=== PATIENT | male | born 1970 | race Caucasian/White ===

== ENCOUNTER 2019-01-08 14:30 | Emergency (ER) | payer MEDICAID, SELFPAY ==
[2019-01-08 14:33] VITALS: BP 127/75; PULSE 135; RESP 18; TEMP 37.3; O2SAT 97
--- NOTE | 2019-01-08 14:55 | W.ED.GENAD ---
Discharge Plan Disposition Patient Disposition: HOME Condition: Stable Discharge Details Chief Complaint: Cellulitis Clinical Impression: Pilonidal abscess Reason For Visit: cyst burst low back Primary Care Provider: Marco Antonio Barragan ED Provider: Phill Lee Home Meds and New Rx's Prescriptions: New sulfamethoxazole-trimethoprim [Bactrim DS] 800-160 mg tablet 1 tab PO BID Qty: 14 RF: 0 amoxicillin-pot clavulanate [Augmentin] 875-125 mg tablet 1 tab PO BID Qty: 14 RF: 0 No Action lisinopril 5 mg Tablet RF: 0 Discharge Instructions Additional Instructions: You have an abscess that drained prior to coming here take the antibiotics as prescribed. You can also take 1000mg tylenol and 600mg ibuprofen every 6 hours for pain as needed you should be contacted with an appointment for general surgery If you feel you are becoming more ill, have persistent high fevers or severe abdomimal pain return to the emergency department Medical Decision Making Pt states he has a hx of recurrent cysts that drain at the tailbone area, had it drain this morning while doing sit ups. Had subjective fevers earlier but states none since. He has an open area that apperas to be a drained pilonidal cyst with 1cm surrounding erythema. No abdomintal tenderness so doubt deeper abscess and no neurological findings to suggest sea, no ivdu. He appears systemically well so do not feel labs or imaging for sepsis or other causes of his symptoms indicated at this time. Will place on oral abx and refer to general surgery, return precautions given Differential Diagnosis pilonidal cyst vs abscess HPI General Mode of arrival: ambulatory. Date/Time Provider Initiated Documentation: 01/08/19 14:41. Limitations to Documentation: no limitations. Information obtained by: patient. History of Present Illness 48 year old M presents to the emergency department with the chief complaint of abscess at tail bone, described as moderate, and is localized to the back. Patient reports no radiation. Patient started experiencing this day(s) (1) and it has been constant. No relieving factors improve symptom(s), No exacerbating factors reported . Patient did receive the following treatments prior to arrival, none Related Data Home Medications Medication Instructions Recorded Confirmed amoxicillin-pot clavulanate 1 tab PO BID #14 tab 01/08/19 [Augmentin] lisinopril 01/08/19 sulfamethoxazole-trimethoprim 1 tab PO BID #14 tab 01/08/19 [Bactrim DS] Previous Rx's Medication Instructions Recorded amoxicillin-pot clavulanate 1 tab PO BID #14 tab 01/08/19 [Augmentin] sulfamethoxazole-trimethoprim 1 tab PO BID #14 tab 01/08/19 [Bactrim DS] Allergies Allergy/AdvReac Type Severity Reaction Status Date / Time No Known Allergies Allergy Unverified 01/08/19 14:38 General Stated Complaint: Cellulitis OTIS: 4 Review of Systems Review of Systems All systems reviewed & are unremarkable except as noted in HPI and below ENT Denies change in voice Cardiovascular Denies chest pain Gastrointestinal Denies abdominal pain Psychiatric Denies depression Endocrine Denies cold intolerance and Denies heat intolerance PFSH Social History Smoking and Tabacco status: Current every day Exam Const General: no acute distress Orientation: alert HENMT Head: normal to inspection Ears: external ears normal General nose exam: external nose normal Mouth: moist mucous membranes Eyes General: appearance normal, both eyes and all related structures Neck Neck: normal visual inspection Resp Effort & Inspection: normal respiratory effort and able to speak in complete sentences Cardio Rate: regular rate (Hr 98 on exam) Neuro General: alert and oriented x3 Extrem General: normal to inspection Psych Mental Status: mental status grossly normal Course Vital Signs Temperature 37.3 C 01/08/19 14:33 Pulse 135 H 01/08/19 14:33 Respiratory Rate 18 01/08/19 14:33 Blood Pressure 127/75 01/08/19 14:33 Pulse Oximetry 97 01/08/19 14:33 Temperature 37.3 C 01/08/19 14:33 Temperature Source Temporal Artery Scan 01/08/19 14:33 Pulse 135 H 01/08/19 14:33 Respiratory Rate 18 01/08/19 14:33 Respiratory Effort 01/08/19 14:39 Blood Pressure 127/75 01/08/19 14:33 Pulse Oximetry 97 01/08/19 14:33 Oxygen Delivery Method Room Air 01/08/19 14:33 Oxygen Flow Rate 0 01/08/19 14:33 Pain Level 6 01/08/19 14:33
--- NOTE | 2019-01-08 14:59 | ED.GENADUL_ITS ---
Discharge Plan Disposition Patient Disposition: HOME Condition: Stable Discharge Details Chief Complaint: Cellulitis Clinical Impression: Pilonidal abscess Reason For Visit: cyst burst low back Primary Care Provider: Marco Antonio Barragan ED Provider: Phill Lee Home Meds and New Rx's Prescriptions: New sulfamethoxazole-trimethoprim [Bactrim DS] 800-160 mg tablet 1 tab PO BID Qty: 14 RF: 0 amoxicillin-pot clavulanate [Augmentin] 875-125 mg tablet 1 tab PO BID Qty: 14 RF: 0 No Action lisinopril 5 mg Tablet RF: 0 Discharge Instructions Additional Instructions: You have an abscess that drained prior to coming here take the antibiotics as prescribed. You can also take 1000mg tylenol and 600mg ibuprofen every 6 hours for pain as needed you should be contacted with an appointment for general surgery If you feel you are becoming more ill, have persistent high fevers or severe abdomimal pain return to the emergency department Medical Decision Making Pt states he has a hx of recurrent cysts that drain at the tailbone area, had it drain this morning while doing sit ups. Had subjective fevers earlier but states none since. He has an open area that apperas to be a drained pilonidal cyst with 1cm surrounding erythema. No abdomintal tenderness so doubt deeper abscess and no neurological findings to suggest sea, no ivdu. He appears systemically well so do not feel labs or imaging for sepsis or other causes of his symptoms indicated at this time. Will place on oral abx and refer to general surgery, return precautions given Differential Diagnosis pilonidal cyst vs abscess HPI General Mode of arrival: ambulatory . Date/Time Provider Initiated Documentation: 01/08/19 14:41 . Limitations to Documentation: no limitations . Information obtained by: patient . History of Present Illness 48 year old M presents to the emergency department with the chief complaint of abscess at tail bone, described as moderate, and is localized to the back. Patient reports no radiation. Patient started experiencing this day(s) (1) and it has been constant. No relieving factors improve symptom(s), No exacerbating factors reported . Patient did receive the following treatments prior to arr ival, none Related Data Home Medications Medication Instructions Recorded Confirmed amoxicillin-pot clavulanate 1 tab PO BID #14 tab 01/08/19 [Augmentin] lisinopril 01/08/19 sulfamethoxazole-trimethoprim 1 tab PO BID #14 tab 01/08/19 [Bactrim DS] Previous Rx's Medication Instructions Recorded amoxicillin-pot clavulanate 1 tab PO BID #14 tab 01/08/19 [Augmentin] sulfamethoxazole-trimethoprim 1 tab PO BID #14 tab 01/08/19 [Bactrim DS] Allergies Allergy/AdvReac Type Severity Reaction Status Date / Time No Known Allergies Allergy Unverified 01/08/19 14:38 General Stated Complaint: Cellulitis OTIS: 4 Review of Systems Review of Systems All systems reviewed & are unremarkable except as noted in HPI and below ENT Denies change in voice Cardiovascular Denies chest pain Gastrointestinal Denies abdominal pain Psychiatric Denies depression Endocrine Denies cold intolerance and Denies heat intolerance PFS Social History Smoking and Tabacco status: Current every day Exam Const General: no acute distress Orientation: alert HENMT Head: normal to inspection Ears: external ears normal General nose exam: external nose normal Mouth: moist mucous membranes Eyes General: appearance normal, both eyes and all related structures Neck Neck: normal visual inspection Resp Effort & Inspection: normal respiratory effort and able to speak in complete sentences Cardio Rate: regular rate (Hr 98 on exam) Neuro General: alert and oriented x3 Extrem General: normal to inspection Psych Mental Status: mental status grossly normal Course Vital Signs Temperature 37.3 C 01/08/19 14:33 Pulse 135 H 01/08/19 14:33 Respiratory Rate 18 01/08/19 14:33 Blood Pressure 127/75 01/08/19 14:33 Pulse Oximetry 97 01/08/19 14:33 Temperature 37.3 C 01/08/19 14:33 Temperature Source Temporal Artery Scan 01/08/19 14:33 Pulse 135 H 01/08/19 14:33 Respiratory Rate 18 01/08/19 14:33 Respiratory Effort 01/08/19 14:39 Blood Pressure 127/75 01/08/19 14:33 Pulse Oximetry 97 01/08/19 14:33 Oxygen Delivery Method Room Air 01/08/19 14:33 Oxygen Flow Rate 0 01/08/19 14:33 Pain Level 6 01/08/19 14:33
--- NOTE | 2019-01-09 07:34 | CMPROGNOTE_ITS ---
Care Management Progress Note 01/09-Dr. Lee requested assistance with a general surgery referal within one week for a sebaceous cyst abscess. Referral faxed to [facility] this am.
== END 2019-01-08 16:01 | disposition home or self-care (01) ==
PROVIDERS: Emergency Provider Emergency Medicine; PCP General Practice
DX: L05.01 Pilonidal cyst with abscess (principal)
CPT/HCPCS: 99283

== ENCOUNTER 2019-01-15 11:35 | Outpatient (CLI) | payer MEDICAID, SELFPAY ==
[2019-01-15 12:24] LABS: HCT 46.3 % (40.0-50.0); HGB 15.4 g/dL (13.5-17.5); Mean Corp. HGB Concentration 33.3 g/dL (32.0-36.0); Mean Corpuscular Volume 90.1 fL (80-95); Mean Platelet Volume 9.8 fL (8.0-11.0); Platelet Count 277 x1000/uL (130-400); RBC 5.14 m/cumm (4.50-6.00); RBC Distribution Width 14.1 % (11.8-14.1); White Blood Cell Count 6.11 k/cumm (4.4-10.8)
[2019-01-15 12:56] LABS: Anion Gap 10.5 mmol/L (3-11); BUN 14 mg/dL (7-18); CO2 27.5 mmol/L (21.0-32.0); CREATININE 1.08 mg/dL (0.70-1.30); Calcium 9.5 mg/dL (8.5-10.1); Chloride 102 mmol/L (98-107); Glucose 94 mg/dL (70-100); Potassium 4.4 mmol/L (3.5-5.1); Sodium 140 mmol/L (136-145)
[2019-01-15 14:34] LABS: Hemoglobin A1C 5.6 % (4.5-6.2)
== END 2019-01-15 11:55 ==
PROVIDERS: Visit Provider Surgery
DX: L05.01 Pilonidal cyst with abscess (principal); L72.9 Follicular cyst of the skin and subcutaneous tissue, unspecified
CPT/HCPCS: 36415; 80048; 85027; 83036

== ENCOUNTER 2019-02-06 06:11 | Day surgery (SDC) | payer MEDICAID, SELFPAY ==
[2019-02-06 06:24] VITALS: BP 129/88; PULSE 86; RESP 16; TEMP 36.6; O2SAT 98
[2019-02-06] MEDS: Lactated Ringers 1,000 ML 80 ML IV (06:45)
[2019-02-06] MEDS: ceFAZolin 2 GM/50 ML BAG IVPB (07:33)
--- NOTE | 2019-02-06 08:00 | PILONIDAL_PTH ---
PATIENT: Junior Barkley LOC: [facility]AB U#:[id number] AGE/SX: 48/M ROOM: RE02/06/[address]: Carly Reese : 1970 BED: DIS: 02/06/2019 SPEC #: [id number] RECD: 02/06/19 09:40 STATUS: MAXIMILIAN RE #: [id number] SAVANNAH: 02/06/19 08:[address]: Carly Reese DEPT: Surgical Specimen RECD BY: Kristal Carmichael ENTERED: 02/06/19 09:40 SP TYPE: PILONIDAL OTHR DR: Milton Dickens Tissues: 1 - PILONIDAL CYST/SINUS Procedures: GROSS AND MICRO LEVEL 3 Comments: [id number]
[2019-02-06] MEDS: Bupivacaine 0.25% Pres-Free 30 ML VIAL (08:21)
--- NOTE | 2019-02-06 08:35 | W.PM.OP ---
Date of service: 02/06/19 Time of Service: 08:35 Operative Note DATE OF PROCEDURE: 02/06/19 PRE-OP DIAGNOSIS: pilonidial cyst POST-OP DIAGNOSIS: same PROCEDURE: excision SURGEON: Carly Reese OVERNIGHT CASHIER: Bonnie Holcomb ANESTHESIA: MAC and local ESTIMATED BLOOD LOSS: 10 PATHOLOGY: other TOURNIQUET TIME: 0 COMPLICATIONS: None Patient was transported to: PACU Patient's condition: stable Implants: 11/10 [place] drain Indications: chronic infections Findings: 5x2x1 Procedure Description: dictated
--- NOTE | 2019-02-06 08:38 | ROE_ITS ---
Date of service: 02/06/19 Time of Service: 08:35 Operative Note DATE OF PROCEDURE: 02/06/19 PRE-OP DIAGNOSIS: pilonidial cyst POST-OP DIAGNOSIS: same PROCEDURE: excision SURGEON: Carly Reese INSTANT POWDER SUPERVISOR: Bonnie Holcomb ANESTHESIA: MAC and local ESTIMATED BLOOD LOSS: 10 PATHOLOGY: other TOURNIQUET TIME: 0 COMPLICATIONS: None Patient was transported to: PACU Patient's condition: stable Implants: 11/10 [place] drain Indications: chronic infections Findings: 5x2x1 Procedure Description: dictated
--- NOTE | 2019-02-06 08:42 | W.PM.DSUDISC ---
DS: Diagnosis Discharge Diagnosis (1) Pilonidal cyst: Status: Acute
[2019-02-06 09:10] VITALS: BP 138/97; PULSE 81; RESP 16; TEMP 36; O2SAT 98
[2019-02-06 09:50] VITALS: BP 132/86; PULSE 89; RESP 18; TEMP 36.6; O2SAT 98
--- NOTE | 2019-02-06 12:02 | ROE_ITS ---
DATE OF PROCEDURE: February 06, 2019 PREOPERATIVE DIAGNOSIS: Pilonidal cyst. POSTOPERATIVE DIAGNOSIS: Same. SURGEON: Carly Reese D.O. GAS LINE SERVICER: GEORGE Cotton ANESTHESIA: Spinal, MAC and local. 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 DRAINS: 1/4 [place] drain was placed. INDICATION FOR PROCEDURE: Mr. Barkley is a 48-year-old male seen at the request of his PCP and is here today for excision of a pilonidal cyst. He's had many abscesses and chronic infections; has had multiple I and D's and is here today for formal excision. He is not marked in preo, but it was visualized. there is no redness or drainage today. he is not on abx at tis time. PROCEDURE: He is brought to the surgical suite. A spinal anesthetic is administered per the Department of Anesthesia. The patient is then placed in the prone position with all bony surfaces padded. He did receive preop antibiotics. A time-out is performed. He is shaved. He is prepped in a sterile fashion using a ChloraPrep scrub solution. 30 cc's of 0.25% Marcaine is used for local anesthetization. The pilonidal cyst is excised and it is approximately 5 x 2 x 1 inches. At the time, all the non-viable tissue is removed. All tracks are probed and excised. It is curetted down to the presacral fascia. It is then copiously irrigated. Electrocautery is used to provide hemostasis. The deep tissue is approximated with #2-0 Vicryl and the skin is approximated with #0 Prolene. A 1/4 [place] drain is left in place, exiting the most inferior portion of the incision. A sterile dressing is applied. The patient tolerated the procedure well without complication and was sent to the Recovery Room in stable condition. cc: Milton Dickens D.O.
--- NOTE | 2019-02-06 17:45 | ROE_ITS ---
DATE OF PROCEDURE: February 06, 2019 PREOPERATIVE DIAGNOSIS: Pilonidal cyst. POSTOPERATIVE DIAGNOSIS: Pilonidal cyst. PROCEDURE: Excision. SURGEON: Carly Reese D.O. DIABETOLOGIST: Bonnie Holcomb PA-C ANESTHESIA: Spinal and MAC. ESTIMATED BLOOD LOSS: 10 cc COMPLICATIONS: The patient tolerated the procedure well without complication. INDICATIONS: Mr. Barkley is a 48-year-old male who presents for definitive excision of a pilonida l cyst. He has had multiple abscesses and infections in the past. He currently does not have an inf ection. He is not currently on any antibiotics. PROCEDURE: The patient is brought to the operative suite and a spinal anesthetic is administered per the Department of Anesthesia. The patient is placed in the prone position with all bony surfaces pa dded. The area is prepped and draped in the usual sterile fashion using a ChloraPrep scrub solution. Thirty cc's of 0.25% Marcaine is used for a local anesthetization. He did receive preoperative ant ibiotics. A time-out was performed prior to beginning the procedure. A #12 blade is used to excise the cyst. It is about 4 inches x 2 inches x 1 inch. With additional curetting, the final is 5 x 3 x 1 inches in size. Electrocautery is used to provide hemostasis. He has multiple old tracts from pr evious incision and drainage procedures. These are all excised as well and all of the nonviable tiss ue is taken off down to the presacral fascia. The wound is copiously irrigated. There is no bleedin g noted. The deep tissue is approximated with #2-0 Vicryl. A quarter-inch [place] drain is placed a nd in the most anterior position. The skin is oversewn with interrupted #0 Prolene. The drain is sewn with #0 Prolene. Sterile dressings are applied. The patient tolerated the procedure well without complications. He was transferred to the Recovery Room in stable condition. cc: Milton Dickens D.O.
== END 2019-02-06 10:10 | disposition home or self-care (01) ==
PROVIDERS: PCP Neuromusculoskeletal Medicine & OMM; Visit Provider Surgery
PROC: (CPT 11771; principal; 2019-02-06 07:30)
DX: L05.91 Pilonidal cyst without abscess (principal); I10 Essential (primary) hypertension
CPT/HCPCS: 11771; 88304; J0690; J1100; J2250; J2405

== ENCOUNTER 2020-01-02 02:04 | Outpatient (CLI) | payer MEDICAID, SELFPAY ==
[2020-01-02 09:41] LABS: HCT 45.9 % (40.0-50.0); HGB 15.3 g/dL (13.5-17.5); Mean Corp. HGB Concentration 33.3 g/dL (32.0-36.0); Mean Corpuscular Hemoglobin 30.8 pg (27.0-33.0); Mean Corpuscular Volume 92.4 fL (80-95); Platelet Count 245 x1000/uL (130-400); RBC 4.97 m/cumm (4.50-6.00); White Blood Cell Count 5.34 k/cumm (4.4-10.8)
[2020-01-02 10:04] LABS: ALT 55 U/L (16-63); AST 28 U/L (15-37); Alkaline Phosphatase 60 U/L (46-116); Anion Gap 7.8 mmol/L (3-11); BUN 13 mg/dL (7-18); Bilirubin, Total 0.6 mg/dL (0.2-1.0); CO2 28.2 mmol/L (21.0-32.0); CREATININE 1.09 mg/dL (0.70-1.30); Calcium 9.2 mg/dL (8.5-10.1); Calculated LDL 169 mg/dL (<100); Chloride 102 mmol/L (98-107); Cholesterol 266 mg/dL (<200); Glucose 100 mg/dL (74-106); HDL Cholesterol 63 mg/dL (40-60); Potassium 4.6 mmol/L (3.5-5.1); Sodium 138 mmol/L (136-145); Total Protein 7.3 g/dL (6.4-8.2); Triglyceride 172 mg/dL (<150)
== END 2020-01-02 02:24 ==
PROVIDERS: PCP Family Medicine; Visit Provider Family Medicine
DX: I10 Essential (primary) hypertension (principal)
CPT/HCPCS: 36415; 80053; 80061; 85027

== ENCOUNTER 2020-04-09 08:07 | Outpatient (CLI) | payer MEDICAID, SELFPAY ==
[2020-04-10 10:20] LABS: COVID-19 RT-PCR UVMMC Result Negative (Negative)
== END 2020-04-09 08:27 ==
PROVIDERS: PCP Family Medicine; Visit Provider Family Medicine
DX: Z11.59 Encounter for screening for other viral diseases (principal)
CPT/HCPCS: U0003

== ENCOUNTER 2022-02-08 01:59 | Outpatient (CLI) | payer MEDICAID, SELFPAY ==
--- NOTE | 2022-02-08 12:26 | DI.RAD_ITS ---
Exam(s) XR CHEST 2V PA LATERAL EXAM: XR CHEST 2V PA LATERAL CLINICAL HISTORY: FH thor aortic aneurysm,z82.49. TECHNIQUE: 2D digital imaging was performed. COMPARISON: No exams were available for comparison FINDINGS: 2 views: Heart size is normal. The mediastinum is not widened. Left lung is clear. There is mild infiltrate in the right midlung. No pleural effusions. IMPRESSION: Mild right midlung infiltrate. No pleural effusions. Follow-up to resolution is recommended. DATA REPOSITORY: RADIATION DOSE DELIVERED:
== END 2022-02-08 02:19 ==
PROVIDERS: PCP Family Medicine; Visit Provider Family Medicine
DX: Z82.49 Family history of ischemic heart disease and other diseases of the circulatory system (principal); R91.8 Other nonspecific abnormal finding of lung field
CPT/HCPCS: 71046

== ENCOUNTER → 2022-03-26 04:31 | Outpatient (CLI) | payer MEDICAID, SELFPAY | PROVIDERS: PCP Family Medicine; Visit Provider Family Medicine ==

== ENCOUNTER 2023-01-19 07:43 | Day surgery (SDC) | payer MEDICAID, SELFPAY ==
[2023-01-19 07:43] VITALS: BP 132/97; PULSE 92; RESP 20; TEMP 36.3; O2SAT 98
[2023-01-19] MEDS: Lactated Ringers 1,000 ML 80 ML IV (08:19)
--- NOTE | 2023-01-19 08:25 | ANES.PREOP_ITS ---
General Info Date of Service Date Performed: 01/19/23 Height: 5 ft 8 in Weight: 86.3 kg Body Mass Index (BMI): 28.9 Surgical Procedure: Operation Date: 01/19/23 10:05 Proposed Procedure Side Surgeon p Braden Gallagher MD Meds Allergies and Home Medications Allergies Allergy/AdvReac Type Severity Reaction Status Date / Time No Known Allergies Allergy Verified 01/18/23 10:58 Home Medication Medication Instructions Recorded CBD PO/SL DAILY 12/24/19 ashwaganda 800 mg PO DAILY 12/24/19 omega 9-nam-yxn-fish oil 1,000 mg 1 cap PO DAILY 12/24/19 (120 mg-180 mg) capsule (Fish Oil) vitamin B complex (B 1 tab PO DAILY 12/24/19 Complex-Vitamin B12 tablet) fexofenadine 180 mg tablet 180 mg PO DAILY PRN 02/05/22 (Marianela Allergy) lisinopril 20 mg tablet 20 mg PO DAILY #90 tabs 02/05/22 bisacodyl 5 mg tablet,delayed 5 mg PO ONCE #4 tabs 12/23/22 release (Dulcolax (bisacodyl)) polyethylene glycol 3350 17 17 g PO ONCE #238 grams 12/23/22 gram/dose oral powder Current Visit Medications: Current Medications Generic Name Dose Route Start Last Admin Trade Name Berlinq PRN Reason Stop Dose Admin Ringer's Solution 1,000 mls @ 80 mls/hr 01/19/23 06:00 01/19/23 08:19 IV 02/17/23 23:59 80 mls/hr INFUSION EDUAR Administration IV Miscellaneous Supplies 1 each 01/19/23 06:00 Iv Access IV 02/17/23 23:59 DIRECTED EDUAR Sodium Chloride 0 ml 01/19/23 06:00 Normal Saline Flush 10 Ml Syr IV 02/17/23 23:59 PRN PRN Sodium Chloride 0 ml 01/19/23 06:00 Normal Saline 10 Ml Vial IJ 02/17/23 23:59 DIRECTED PRN Sterile Water 0 ml 01/19/23 06:00 Water,Injection,Sterile 10 Ml Vial IJ 02/17/23 23:59 DIRECTED PRN PFSH Active Problems Active Problems: Problem Status Onset Code Screening for colon cancer Z12.11 Family history of thoracic aortic aneurysm Z82.49 Elevated LDL cholesterol level E78.00 Family history of ASCVD (arteriosclerotic cardiovascular disease) Z82.49 HTN (hypertension) I10 Pilonidal cyst L05.91 Medical History Medical History History of sebaceous cyst patient seen in ED 01/08/[address] [facility], hx of recurrent cysts. Surgical History Surgical History History of appendectomy Tobacco Smoking/Tobacco Use Status: Former Tobacco Use Alcohol Alcohol Intake: current Alcohol intake frequency: 0-2 drinks per day Alcohol type: beer Substance Use Substance use: Occasionally Substance use type: marijuana Vital Signs and Lab Results Vital Signs Most Recent Vital Signs in EMR: Most Recent Vital Signs Temp Pulse Resp BP Pulse Ox 36.3 C L 92 H 20 132/97 H 98 01/19/23 07:43 01/19/23 07:43 01/19/23 07:43 01/19/23 07:43 01/19/23 07:43 Lab Results Blood Type / Crossmatch: No Data to Display Complete Blood Count: No Data to Display Complete Metabolic Panel: No Data to Display Liver Function Panel: No Data to Display Coagulation Panel: No Data to Display Cardiac Panel: No Data to Display Arterial Blood Gas: No Data to Display Venous Blood Gas: No Data to Display Pancreas Panel: No Data to Display Thyroid Panel: No Data to Display Infectious Disease: No Data to Display Blood Cultures: No Data to Display Toxicology Panel: No Data to Display Anesthesia Assessment and Plan Anesthesia History Personal History: No History of Anesthesia Complications Family History: No Family History of Anesthesia Complications Exercise Tolerance Exercise Tolerance: Metabolic Equivalents>4 Pertinent Negatives Pertinent Negatives: No Symptoms of GERD Cardiac & Pulmonary Exam Cardiac Exam: Normal S1/S2 Heart Sounds Pulmonary Exam: Clear Bilateral Breath Sounds Implantable Cardiac Device Does patient have a Pacemaker or an ICD?: No Airway Exam Known Difficult Airway: No Mallampati Class: 3 Mouth Opening: Normal (> 3cm) Thyromental Distance: Greater than 3 cm Neck Range of Motion: Full ROM Neck Circumference: Normal Teeth Condition: Normal Dentition ASA Classification ASA Score: ASA 2 Emergency Case?: No NPO Status NPO Status: NPO Clears >2 hours, Solids >8 hours Anesthesia Plan Resuscitation Status: Full Code Anesthesia Technique: General Anesthesia Airway Planned: Natural Airway Monitors Used: Standard Monitors
[2023-01-19 08:28] VITALS: BMI 28.9
--- NOTE | 2023-01-19 09:49 | BOWEL_PTH ---
PATIENT: Junior Barkley LOC: FAB U#:[id number] AGE/SX: 52/M ROOM: RE01/19/[address]: Abimael Gallagher : 1970 BED: DIS: 01/19/2023 SPEC #: [id number] RECD: 01/19/23 12:56 STATUS: MAXIMILIAN RE #: [id number] SAVANNAH: 01/19/23 09:[address]: Abimael Gallagher DEPT: Surgical Specimen RECD BY: Kristal Carmichael ENTERED: 01/19/23 12:58 SP TYPE: Bowel OTHR DR: Ursula Chamorro Tissues: 1 - BIOPSY BOWEL 2 - BIOPSY BOWEL Procedures: GROSS AND MICRO LEVEL 4 Comments: [id number]
[2023-01-19 10:00] VITALS: BP 114/78; PULSE 91; RESP 18; TEMP 36.3; O2SAT 97
--- NOTE | 2023-01-19 10:04 | COLE_ITS ---
Date of service: 01/19/23 Time of Service: 10:04 Colonoscopy Report Procedure Description: Procedures performed: 1. Colonoscopy with snare polypectomy x2 Preoperative diagnosis: Screening colonoscopy Postoperative diagnosis: Colorectal polyps Surgeon: Mario Gallagher Anesthesia: Rafael Indication for procedure: 52-year-old man with no symptoms and no family history due for his for screening. Findings: The ascending colon a 10?12 mm sessile and multi?lobe polyp was remov ed with hot snare technique(resected in 1 piece). In the distal rectum a 3-5 mm sessile adenomatous?appearing polyp was removed with hot snare technique. Surveillance/follow-up recommendations: The right?sided polyp was quite advanced in appearance and greater than 1 cm - I recommend repeating another colonoscopy in 3 years. Complications: None Blood loss: Minimal Specimens:?? YES Quality of Prep:?? Good Procedure in detail: Written consent was obtained from the patient who was in agreement with the risks, benefits and indications of the procedure.? We went to the endoscopy suite and laid the patient in left lateral decubitus position.? Anesthesia was administered which was tolerated well.? A timeout was performed and when we are all in agreement we began the procedure. Digital rectal exam and visual examination was performed and within normal limits.? A well?lubricated colonoscope was advanced without difficulty all the way to the cecum identified by the ileocecal valve, and triangular folds and appendiceal orifice.? It was then slowly withdrawn.?? Retroflexion was performed in the rectum.? The findings/interventions are noted above. The scope was then removed and the patient tolerated the procedure well and was then taken back to the PACU in hemodynamically stable condition.
--- NOTE | 2023-01-19 10:05 | W.ANESPOSTOP ---
Postoperative Evaluation Date, Time and Location Date Performed: 01/19/23 Time Performed: 10:05 Patient Location: Day Surgery Unit Vital Signs Most Recent Imported Vital Signs: Most Recent Vital Signs Temp Pulse Resp BP Pulse Ox 36.3 C L 91 H 18 114/78 97 01/19/23 10:00 01/19/23 10:00 01/19/23 10:00 01/19/23 10:00 01/19/23 10:00 Pain Score Most Recent Pain Score: Most Recent Pain Score Pain Level 3 01/19/23 10:00 Assessment Mental Status: Awake (Alert & Oriented to Patient Baseline) Airway and Respiratory Function: Patent airway with normal (patient baseline) respiratory exam Cardiovascular Function: Hemodynamically Stable Hydration Status: Adequately Hydrated Nausea & Vomiting: No Nausea or Vomiting Pain: Pt. Denies Any Pain Peripheral Nerve Block: Patient did not receive a nerve block
[2023-01-19 10:20] VITALS: BP 114/78; PULSE 74; RESP 18; TEMP 36.4; O2SAT 99
== END 2023-01-19 10:48 | disposition home or self-care (01) ==
PROVIDERS: PCP Family Medicine; Visit Provider Student in an Organized Health Care Education/Training Program
PROC: 0DJD8ZZ Inspection of Lower Intestinal Tract, Via Natural or Artificial Opening Endoscopic (ICD-10-PCS; CPT 45378; principal; 2023-01-19 10:00)
DX: Z12.11 Encounter for screening for malignant neoplasm of colon (principal); K63.5 Polyp of colon
CPT/HCPCS: 45385; 88305

== ENCOUNTER 2023-02-28 01:29 | Outpatient (CLI) | payer MEDICAID, SELFPAY ==
[2023-02-28 14:28] LABS: ALT 49 U/L (16-63); AST 22 U/L (15-37); Albumin 3.7 g/dL (3.4-5.0); Alkaline Phosphatase 78 U/L (46-116); Anion Gap 8.4 mmol/L (3-11); BUN 15 mg/dL (7-18); Bilirubin, Total 0.2 mg/dL (0.2-1.0); CO2 28.6 mmol/L (21.0-32.0); CREATININE 1.4 mg/dL (0.70-1.30); Calculated LDL 116 mg/dL (<100); Chloride 103 mmol/L (98-107); Cholesterol 243 mg/dL (<200); Estimated GFR 61.23 (mL/min/1.73m2); Glucose 101 mg/dL (74-106); HDL Cholesterol 60 mg/dL (40-60); Potassium 4.4 mmol/L (3.5-5.1); Sodium 140 mmol/L (136-145); Total Protein 7.3 g/dL (6.4-8.2); Triglyceride 336 mg/dL (<150)
== END 2023-02-28 01:30 | disposition home or self-care (01) ==
LOC: LBO 01:29
PROVIDERS: PCP Family Medicine; Visit Provider Family Medicine
DX: I10 Essential (primary) hypertension (principal); Z13.6 Encounter for screening for cardiovascular disorders
CPT/HCPCS: 36415; 80053; 80061

== ENCOUNTER 2024-06-01 01:45 | Outpatient (CLI) | payer MEDICAID, SELFPAY ==
--- OUTSIDE RECORDS SUMMARY | 2024-06-01 01:55 | XMS_ITS | Encounter Summary ---
Author Organization [facility] Address [address] [place] [address] Care Team Providers Care Early Head Start Director Name Role Phone Unknown, Provider Primary Care Provider [phone] Encounter Details Date Type Department Care Team (Latest Contact Info) Description 02/06/2019 15:16 EDT - 02/06/2019 23:59 EDT Hospital Encounter [address] [id number] Unknown, Provider, Discharge Disposition: Home or Self Care Social History Tobacco Use Types Packs/Day Years Used Date Smoking Tobacco: Never Assessed Sex and Gender Information Value Date Recorded Sex Assigned at Not on file Gender Identity Not on file Sexual Orientation Not on file documented as of this encounter Discharge Disposition Disposition Code Departure Means Destination Home or Self Prison documented in this encounter Plan of Treatment Not on file documented as of this encounter Visit Diagnoses Not on filedocumented in this encounter Care Teams Early Head Start Director Relationship Specialty Start Date End Date Unknown, Provider, PCP - General 09/14/15 01/04/23 documented as of this encounter
--- OUTSIDE RECORDS SUMMARY | 2024-06-01 01:55 | XMS_ITS | Encounter Summary ---
Author Organization [facility] Address [address] [place] [address] Care Team Providers Care Trading Manager Name Role Phone Ursula Chamorro MD Primary Care Provider Unavailable Encounter Details Date Type Department Care Team (Late st Contact Info) Description 01/19/2023 Lab Requisition [facility] Pathology & Laboratory Medicine - [facility] [address] [place] [address] Abimael Gallagher MD [address] [place] [phone] Encounter for other general examination Social History Tobacco Use Types Packs/Day Years Used Date Smoking Tobacco: Never Assessed Interpersonal Safety Answer Date Record ed Physically Hurt Never 06/08/2020 Verbally Threaten Not on file 06/08/2020 Sex and Gender Information Value Date Recorded Sex Assigned at Not on file Gender Identity Not on file Sexual Orientation Not on file documented as of this encounter Plan of Treatment Not on file documented as of this encounter Procedures Procedure Name Priority Date/Time Associated Diagnosis Comments SURGICAL PATHOLOGY Today 01/19/2023 9: 49 EDT Encounter for other general examination documented in this encounter Results * SURGICAL PATHOLOGY (01/19/2023 9:49 EDT) Note to Patient The following pathology results have been interpreted by your pathologist and may be available to you before your health provider has had the opportunity to review them. Please allow time for your provider to receive these results and explore management options, if applicable. 01/20/2023 15:16 [facility] Final Diagnosis A. COLON, ASCENDING, POLYP, BIOPSY: - Tubulovillous adenoma. B. RECTUM, POLYP, BIOPSY: - Tubular adenoma. 01/20/2023 15:16 [facility] Attestation By the signature below, the attending physician certifies that they have 1) personally conducted a gross and/or microscopic examination of the described specimen(s), and/or personally interpreted the results of laboratory testing of the described specimen(s), and 2) personally rendered or confirmed the above diagnosis. 01/20/2023 15:16 [facility] at 1516 Clinical History Rectal polyps 01/20/2023 15:16 [facility] Gross Description A. Received in formalin labelled with proper patient identification (initials L, S) and 1. Ascending colon polyp x1 is a single brown polypoid tissue (0.6 x 0.5 x 0.3 cm). Bisected and entirely submitted in A1. B. Received in formalin labelled with proper patient identification (initials L, S) and 2. Rectal polyp x1 is a single brown polypoid tissue (0.4 x 0.3 x 0.2 cm). Submitted intact in B1. Briseida Avalos 01/20/2023 7:53 01/20/2023 15:16 [facility] Performing Lab [facility] 01/20/2023 15:16 [facility] Scanned Images 01/20/2023 15:16 [facility] Tissue SPECIMEN FROM RECTUM / Unknown 01/19/2023 9:49 EDT 01/19/2023 17:08 EDT Tissue specimen (specimen) SPECIMEN FROM RECTUM / Unknown 01/19/2023 9:49 EDT 01/19/2023 17:08 EDT Abimael Gallagher MD PATHOLOGY ORDERABLES [facility] [address] [place] [address] documented in this encounter Visit Diagnoses Diagnosis Encounter for other general examination documented in this encounter Care Teams Trading Manager Relationship Specialty Start Date End Date Ursula Chamorro MD [address] [place] [address] PCP - General Family Medicine - Primary Care 01/05/23 documented as of this encounter
--- OUTSIDE RECORDS SUMMARY | 2024-06-01 01:55 | XMS_ITS | Referral Summary ---
Author Organization [facility] Address [address] [place] [address] Care Team Providers Care Retail Sales Professional Name Role Phone Ursula Chamorro MD Primary Care Provider Unavailable Social History Tobacco Use Types Packs/Day Years Used Date Smoking Tobacco: Never Assessed Interpersonal Safety Answer Date Record ed Physically Hurt Never 06/08/2020 Verbally Threaten Not on file 06/08/2020 Sex and Gender Information Value Date Recorded Sex Assigned at Not on file Gender Identity Not on file Sexual Orientation Not on file Plan of Treatment Not on file Care Teams Retail Sales Professional Relationship Specialty Start Date End Date Ursula Chamorro MD [address] [place] [address] [place] [address] PCP - General Family Medicine - Primary Care 01/05/23
--- OUTSIDE RECORDS SUMMARY | 2024-06-01 01:55 | XMS_ITS | Clinical Summary ---
Author Organization [facility] Address [address] [place] [address] Care Team Providers Care Devops Developer Name Role Phone Ursula Chamorro MD Primary [...] Orientation Not on file Plan of Treatment Health Maintenance Due Date Last Done Comments Hepatitis C Screen 1970 Hepatitis B Vaccine (1 of 3 - 19+ 3-dose series) 03/10 COVID-19 Vaccine ( season) 2023 JoseronyJunior Personal/Family Self 1970 [address] [facility] [place] [address] JoseJunior uribe Personal/Family Self 1970 [address] [facility] [place] [address] Junior Barkley Personal/Family Self 1970 [address] [facility] [place] [place], [place] [address] Filippo Junior Personal/Family Self 1970 [address] [facility] [place] [address] Roseaudirony Junior Personal/Family Self 1970 [address] [facility] [place] [address] Roseaudirony Junior Personal/Family Self 1970 [address] [facility] [place] [address] RoseaudiJunior uribe Personal/Family Self 1970 [address] [facility] [place] [address] Care Teams Devops Developer Relationship Specialty Start Date End Date Ursula Chamorro MD [address] [place] [address] PCP - General Family Medicine - Primary Care 01/05/23
--- OUTSIDE RECORDS SUMMARY | 2024-06-01 01:55 | XMS_ITS | Encounter Summary ---
Author Organization [facility] Address [address] [place] [address] Care Team Providers Care Central Office Technician Name Role Phone Unknown, Provider Primary Care Provider [phone] Encounter Details Date Type Department Care Team (Late st Contact Info) Description 02/06/[address] [facility] [phone] Jie Ring, DO [address] [place] [address] Social History Tobacco Use Types Packs/Day Years Used Date Smoking Tobacco: Never Assessed Sex and Gender Information Value Date Recorded Sex Assigned at Not on file Gender Identity Not on file Sexual Orientation Not on file documented as of this encounter Plan of Treatment Not on file documented as of this encounter Procedures Procedure Name Priority Date/Time Associated Diagnosis Comments SURGICAL PATHOLOGY Routine 02/06/2019 22 :51 EDT documented in this encounter Results * SURGICAL PATHOLOGY (02/06/2019 22:51 EDT) Pathology Report: SURGICAL PATHOLOGY REPORT Reports generated via electronic interface contain original data; however they are lacking the format of the original report. Caution should be taken when reading/interpret ing unformatted reports. Name: ? BRET MCNAMARA ? Accession #: ? [id number] ? : ? 1970 (Age: 48) ??M ? Collect Date: ? 02/06/2019 ? Location: ? [facility] ? Receive Date: ? 02/06/2019 ? Provider: JIE RING DO Copy to: BARBARA PIZANO DO ? Final Pathologic Diagnosis: SKIN AND SOFT TISSUE, DESIGNATED PILONIDAL CYST, EXCISION: - Pilonidal cyst. Document reviewed and electronically signed by: SOFI EARLY MD Report ??Date: 02/08/2019 13:50 By the signature above, the attending physician certifies that he/she has personally conducted a gross and/or microscopic examination of the described specimens and rendered or confirmed the above diagnosis. Specimen(s) Received: Pilonidal cyst Clinical History: Pilonidal cyst Gross Description: ? Received in formalin labelled with proper patient identification (initials L, S) and pilonidal cyst are multiple fragments of pink-patel soft tissue and hairbearing skin (6.0 x 5.0 x 3.5 cm in aggregate). Sectioning reveals patel-yellow to pale pink cut surfaces. A 0.3 x 0.3 cm sinus tract containing dark brown hair is identified. [employer] sections are submitted in 1-3. GEORGE Gage (ASCP) 02/07/2019 10:33 AM End of Report [facility] 02/06/2019 22:5 1 EDT 02/06/2019 22:51 EDT Jie Ring DO PATHOLOGY ORDERABLES [facility] [address] [place] [address] documented in this encounter Visit Diagnoses Not on filedocumented in this encounter Care Teams Central Office Technician Relationship Specialty Start Date End Date Unknown, Provider, PCP - General 09/14/15 01/04/23 documented as of this encounter
--- OUTSIDE RECORDS SUMMARY | 2024-06-01 01:55 | XMS_ITS | Encounter Summary ---
Author Organization [facility] Address [address] [place] [address] Care Team Providers Care Vacuum Cooker Operator Name Role Phone Unknown, Provider Primary Care Provider Ursula Chamorro MD Primary Care Provider Unavailable Encounter Details Date Type Department Care Team (Late st Contact Info) Description 04/09/2020 Lab Requisition [facility] Pathology & Laboratory Medicine - [facility] [address] [place] [address] Outr Resulting Lab, Provider Social History Tobacco Use Types Packs/Day Years Used Date Smoking Tobacco: Never Assessed Sex and Gender Information Value Date Recorded Sex Assigned at Not on file Gender Identity Not on file Sexual Orientation Not on file documented as of this encounter Plan of Treatment Not on file documented as of this encounter Procedures Procedure Name Priority Date/Time Associated Diagnosis Comments ZZCOVID-19 TEST [facility] PCR Today 04/09/2020 13:34 EDT COVID-19 TESTING Routine 04/09/2020 13:3 4 EDT documented in this encounter Results * COVID-19 TEST [facility] PCR (04/09/2020 13:34 EDT) Swab ENTIRE NASOPHARYNX / Unknown 04/09/2020 13:34 EDT 04/09/2020 21:06 EDT Provider Outr Resulting Lab MICROBIOLOGY - GENERAL ORDERABLES [facility] [address] [place] [address] * COVID-19 TESTING (04/09/2020 13:34 EDT) COVID-19 rt-PCR Result Negative Negative 04/10/2020 10:[address] [facility] Comment: This test has not been FDA cleared or approved. This test has been authorized by FDA under an EUA for use by authorized laboratories. This test has been authorized only for detection of nucleic acid from 2019-nCoV, not for any other viruses or pathogens. This test is only authorized for the duration of the declaration that circumstances exist justifying the authorization of emergency use of in vitro diagnostic tests for detection and/or diagnosis of 2019-nCoV under section 564(b)(1) of Act, 21 U.S.C ?? 360bbb-3(b) (1), unless the authorization is terminated or revoked sooner. Negative results do not preclude 2019-nCoV infection and should not be used as the sole basis for treatment or other patient management decisions. Negative results must be combined with clinical observations, patient history, and epidemiological information. Performed on the [employer] Fusion instrument Performing Lab [facility] 04/10/2020 10:[address] [facility] Swab ENTIRE NASOPHARYNX / Unknown 04/09/2020 13:34 EDT 04/09/2020 21:06 EDT Provider Outr Resulting Lab MICROBIOLOGY - GENERAL ORDERABLES Performing Organization Address City/State/[facility] Co de Phone Number [facility] [address] [place] [address] documented in this encounter Visit Diagnoses Not on filedocumented in this encounter Care Teams Vacuum Cooker Operator Relationship Specialty Start Date End Date Unknown, Provider, PCP - General 09/14/15 01/04/23 Ursula Chamorro MD [address] [place] [id number] PCP - General Family Medicine - Primary Care 01/05/23 documented as of this encounter
--- OUTSIDE RECORDS SUMMARY | 2024-06-01 01:55 | XMS_ITS | Encounter Summary ---
Author Organization [facility] Address [address] [place] [address] Care Team Providers Care Dynamite Shooter Name Role Phone Unavailable Primary Care Provider Unavailabl e Encounter Details Date Type Department Care Team (Late st Contact Info) Description 06/14/2006 Results Only [facility] - [facility] [address] [place] [address] Roscoe Yip, DO [address] [facility] [address] [place] [address] Social History Tobacco Use Types Packs/Day Years Used Date Smoking Tobacco: Never Assessed Sex and Gender Information Value Date Recorded Sex Assigned at Not on file Gender Identity Not on file Sexual Orientation Not on file documented as of this encounter Plan of Treatment Not on file documented as of this encounter Procedures Procedure Name Priority Date/Time Associated Diagnosis Comments SURGICAL PATHOLOGY Routine 06/14/2006 0:00 EDT documented in this encounter Results * SURGICAL PATHOLOGY (06/14/2006 0:00 EDT) Pathology Report: SURGICAL PATHOLOGY REPORT Reports generated via electronic interface contain original data; however they are lacking the format of the original report. Caution should be taken when reading/interpreti ng unformatted reports. Name: ? BRET MCNAMARA ? Accession #: ? [id number] ? : ? 1970 (Age: 36) ??M ? Collect Date: ? 06/14/2006 ? Location: ? [facility] ? Receive Date: ? 06/15/2006 ? Provider: ROSCOE YIP DO Copy to: ENRIQUE MEYER MD ? Final Pathologic Diagnosis: ? Appendix, appendectomy: - Acute appendicitis and periappendicitis. Document reviewed and electronically signed by: LAINA LEONARD MD Report ??Date: 06/17/2006 14:50 By the signature above, the attending physician certifies that he/she has personally conducted a gross and/or microscopic examination of the described specimens and rendered or confirmed the above diagnosis. Specimen(s) Received: ? Appendix Clinical History: ? Appendicitis Gross Description: ? Received in formalin labelled [place] and appendix is a vermiform appendix which measures 7.5 cm in length and which varies from 0.8 cm in diameter near the proximal resection margin up to 1.2 cm in diameter in the mid section and towards the tip of the appendix. ??The serosal surface of the appendix is patel-streeter, focally hemorrhagic with a focal patel-yellow exudate. There is a small amount of attached patel-yellow mesoappendix measuring 3.5 x 1.5 x 0.8 cm. ??Serial sections through the specimen reveal a mild to markedly dilated lumen which contains a long large fecalith measuring 3.5 cm in length and up to 1.0 cm in diameter. ??Three outside energy sales representatives sections including the inked resection margin en face are submitted in one cassette. (JD. Auguste)/mpl End of Report PAU ROSEN 06/14/2006 06/15/2006 10: 23 EDT Roscoe Yip DO PATHOLOGY ORDER ELAINA [facility] [address] [place] [address] documented in this encounter Visit Diagnoses Not on filedocumented in this encounter
[2024-06-01 12:21] LABS: ALT 44 U/L (16-63); AST 22 U/L (15-37); Alkaline Phosphatase 66 U/L (46-116); Anion Gap 7.7 mmol/L (3-11); BUN 14 mg/dL (7-18); Bilirubin, Total 0.72 mg/dL (0.2-1.0); CO2 29.3 mmol/L (21.0-32.0); CREATININE 1.2 mg/dL (0.70-1.30); Calcium 9.2 mg/dL (8.5-10.1); Calculated LDL 143 mg/dL (<100); Chloride 101 mmol/L (98-107); Cholesterol 250 mg/dL (<200); Estimated GFR 72.76 (mL/min/1.73m2); Glucose 101 mg/dL (74-106); HDL Cholesterol 63 mg/dL (40-60); Sodium 138 mmol/L (136-145); Total Protein 7.6 g/dL (6.4-8.2); Triglyceride 220 mg/dL (<150)
[2024-06-01 19:22] LABS: PSA, Screening 5.2 ng/mL (<=3.5)
[2024-06-02 09:45] LABS: HIV-1/2 Ag & Ab Screen Negative (Negative)
[2024-06-04 12:19] LABS: Hepatitis C Ab w Rflx HCV PCR Negative (Negative)
== END 2024-06-01 01:46 | disposition home or self-care (01) ==
LOC: LBO 01:45
PROVIDERS: PCP Family Medicine; Visit Provider Family Medicine
DX: Z00.00 Encounter for general adult medical examination without abnormal findings (principal); I10 Essential (primary) hypertension; Z11.4 Encounter for screening for human immunodeficiency virus [HIV]; Z13.6 Encounter for screening for cardiovascular disorders; Z12.5 Encounter for screening for malignant neoplasm of prostate
CPT/HCPCS: 36415; 80053; 80061; 84153; 86803; 87389

== ENCOUNTER 2024-07-27 01:06 | Outpatient (CLI) | payer MEDICAID, SELFPAY ==
[2024-07-27 18:35] LABS: PSA, Screening 5.7 ng/mL (<=3.5)
== END 2024-07-27 01:07 | disposition home or self-care (01) ==
LOC: LOS 01:06
PROVIDERS: PCP Family Medicine; Visit Provider Family Medicine
DX: Z12.5 Encounter for screening for malignant neoplasm of prostate (principal)
CPT/HCPCS: 36415; 84153

== ENCOUNTER 2025-02-11 09:08 | Outpatient (REF) | payer MEDICAID, SELFPAY ==
--- NOTE | 2025-02-11 09:20 | PROST_PTH ---
PATIENT: Junior Barkley LOC: N U#:[id number] AGE/SX: 54/M ROOM: RE02/11/[address]: Adolfo Vitale MD : 1970 BED: DIS: 02/11/2025 SPEC #: [id number] RECD: 02/11/25 12:45 STATUS: MAXIMILIAN RE #: [id number] SAVANNAH: 02/11/25 09:[address]: Adolfo Vitale DEPT: Surgical Specimen RECD BY: Kristal Carmichael ENTERED: 02/11/25 12:46 SP TYPE: PROST OTHR DR: Ursula Chamorro Tissues: 1 - PROSTATE NEEDLE BIOPSY 2 - PROSTATE NEEDLE BIOPSY 3 - PROSTATE NEEDLE BIOPSY 4 - PROSTATE NEEDLE BIOPSY 5 - PROSTATE NEEDLE BIOPSY 6 - PROSTATE NEEDLE BIOPSY 7 - PROSTATE NEEDLE BIOPSY 8 - PROSTATE NEEDLE BIOPSY 9 - PROSTATE NEEDLE BIOPSY 10 - PROSTATE NEEDLE BIOPSY 11 - PROSTATE NEEDLE BIOPSY 12 - PROSTATE NEEDLE BIOPSY Procedures: GROSS AND MICRO LEVEL 4 Comments: [id number]
== END 2025-02-11 09:09 | disposition home or self-care (01) ==
LOC: LBN 09:08
PROVIDERS: PCP Family Medicine; Visit Provider Urology
DX: N40.2 Nodular prostate without lower urinary tract symptoms (principal); R97.20 Elevated prostate specific antigen [PSA]
CPT/HCPCS: 88305

== ENCOUNTER 2025-09-01 00:39 | Inpatient (IN) | payer MEDICAID, SELFPAY ==
[2025-09-01] VITALS (27 sets, daily range): BP systolic 121–143; BP diastolic 87–104; PULSE 100–142; RESP 16–26; TEMP 36.7–37; O2SAT 94–100
--- NOTE | 2025-09-01 01:00 | RT.EKG_ITS ---
APPROVED REPORT Exam: Resting ECG Reason for Exam: tachycardia Patient Location: E HR:109 bpm ECG Measurements Heart Rate 109 AXIS ME 142 P 29 QRSd 72 QRS 12 QT 299 T 18 QTc 402 Conclusion Sinus tachycardia...rate> [address] segment or T wave abnormalities to suggest occlusive PR.
--- NOTE | 2025-09-01 01:05 | W.ED.GENAD ---
Discharge Plan Disposition Patient Disposition: Admit to [facility] Condition: Serious Discharge Details Clinical Impression: Ileus, Post-operative complication Primary Care Provider: Ursula Chamorro ED Provider: Eloisa Odom Home Meds and New Rx's Prescriptions: No Action fexofenadine [Marianela Allergy] 180 mg tablet 180 mg PO DAILY PRN omega 6-iux-vio-fish oil [Fish Oil] 1,000 mg (120 mg-180 mg) capsule 1 cap PO DAILY vitamin B complex [B Complex-Vitamin B12] Tablet 1 tab PO DAILY lisinopril 20 mg tablet 20 mg PO DAILY Qty: 30 12RF HPI General Mode of arrival: ambulatory. Date/Time Provider Initiated Documentation: 09/01/25 00:39. Limitations to Documentation: no limitations. Information obtained by: patient. HPI Narrative: 55yo M with hx HTN, HLD, POD #3 from prostatectomy at [facility], presenting for vomiting and abdominal pain. Has been vomiting since discharge on Tuesday (POD #1), initially only a few times but worsening of the course of Tuesday and now has not been able to keep anything down all evening. Having moderate to severe diffuse abdominal pain despite home tylenol and ibuprofen. + flatus, + BM today, non bloody. No fevers, chills, rash, chest pain, shortness of breath, LE edema, or other concerns. Related Data Home Medications Medication Instructions Recorded Confirmed omega 3-akk-yrv-fish oil 1,000 mg 1 cap PO DAILY 12/24/19 08/21/25 (120 mg-180 mg) capsule (Fish Oil) vitamin B complex (B 1 tab PO DAILY 12/24/19 08/21/25 Complex-Vitamin B12 tablet) fexofenadine 180 mg tablet 180 mg PO DAILY PRN 02/05/22 08/21/25 (Marianela Allergy) lisinopril 20 mg tablet 20 mg PO DAILY #30 tabs 08/21/25 08/21/25 Previous Rx's Medication Instructions Recorded lisinopril 20 mg tablet 20 mg PO DAILY #30 tabs 08/21/25 Allergies Allergy/AdvReac Type Severity Reaction Status Date / Time No Known Allergies Allergy Verified 08/21/25 10:22 General Stated Complaint: Epigastric Pain/Over45 OTIS: 2 Review of Systems Narrative: see HPI Exam Narrative Exam Narrative: General: Alert, mild distress Head: Normocephalic, atraumatic Neck: Trachea midline, Neck supple. ENT: Slighty dry MM. No oropharygeal lesions or exudate. Cardiac: Tachycardiac, regular,, no murmurs appreciated Resp: No respiratory distress. CTAB. Abd: Distended, diffusely TTP with guarding. Not rigid. : No suprapubic tenderness. Extremities: No deformities. No peripheral edema. Neurologic: GCS 15. Moves all extremities freely against gravity Course Vital Signs Vital signs: Vital Signs Temperature 37 C 09/01/25 00:43 Pulse 140 H 09/01/25 00:43 Respiratory Rate 20 09/01/25 00:43 Blood Pressure 123/88 09/01/25 00:43 Temperature 37 C 09/01/25 00:43 Temperature Source Oral 09/01/25 00:43 Pulse 140 H 09/01/25 00:43 Respiratory Rate 20 09/01/25 00:43 Blood Pressure 123/88 09/01/25 00:43 Blood Pressure Position Sitting 09/01/25 00:43 Oxygen Delivery Method Room Air 09/01/25 00:43 Oxygen Flow Rate 0 09/01/25 00:43 Pain Level 6 09/01/25 00:43 Medical Decision Making 55yo M with hx HTN, HLD, POD #3 from prostatectomy at [facility], presenting for vomiting and abdominal pain. Has been vomiting since discharge on Tuesday (POD #1), initially only a few times but worsening of the course of Tuesday and now has not been able to keep anything down all evening. Having moderate to severe diffuse abdominal pain despite home tylenol and ibuprofen. + flatus, + BM today, non bloody. Tachycardiac on arrival to 140's after ambulating into traige; HR 110's on my exam. Vital signs otherwise reassuring. Surgical incisions intact with surrounding echymoiss, no overt signs of infection. Abd distended and diffusely tender to palpation with some guarding. Not rigid. Will give 1L IVFB, zofran, morphine while awaiting results of workup; will send blood cultures. -EKG sinus tachycardia rate low 100's, appropriate intervals, no ST segment or T wave abnormalities to suggest occlusive OR. -Labs reviewed as below, CBC with mild leukocytosis, CMP with slightly elevated Cr (1.4) and anaion gap (16), Mg normal, lipase not suggestive of pancreatitis, VBG reassuring with pH 7.40, lactate slightly elevated at 2.3 (repeat after fluid resus 1.2). UA pending. -CT abd/pelvis independently reviewed; dilauted fluid filled loops of bowel on my view, radiology suggestive of ileus. On reassessment pt reports symptoms have improved. Switched to reglan for antiemetic, added tyelnol and toradol for pain. NG tube ordered. [facility] urology consulted as this is their post-op surgical complication; discussed with Dr. Baez who declined to take patient in transfer and feels he can be managed at [facility] which I agree is reasonable. Discussed with [facility] hospitalist Dr. Leblanc; pt accepted to medicine service for further workup and management. Awaiting admission orders and transfer to the floor. IMPRESSION: Small-bowel diffusely distended with fluid and gas. Prominent distention of the cecum and ascending colon with fluid and gas. Prominent distention of the transverse and descending colon with fluid and gas. Moderate distention of the proximal sigmoid colon. Postop ileus is suspected in the setting of recent surgery. Of note, the patient would likely receive at least some symptomatic benefit after decompression of gas from below. Lab Data Lab results reviewed: Yes I reviewed the patient's lab results. Labs: 09/01/25 02:45 Blood Blood Culture - Pending 09/01/25 01:05 Blood Blood Culture - Pending Laboratory Tests Range/Units 09/01/25 09/01/25 01:15 02:45 WBC (4.4-10.8) 10^3/uL 13.68 H RBC (4.36-5.78) 10^6/uL 5.93 H Hgb (13.5-17.5) g/dL 16.8 Hct (40.0-50.0) % 51.4 H MCV (80-95) fL 87 MCH (27.0-33.0) pg 28.3 MCHC (32.0-36.0) % 32.7 RDW (11.8-14.1) % 14.2 H Plt Count (130-400) 10^3/uL 389 MPV (8.0-11.0) fL 9.9 Immature Gran % % 0.4 Neutrophils % % 84.0 Lymphocytes % % 10.4 Monocytes % % 4.6 Eosinophils % % 0.2 Basophils % % 0.4 Nucleated RBC % (0.0-0.3) % 0.0 Absolute Neutrophils (1.2-6.7) 10^3/uL 11.49 H Absolute Lymphocytes (1.2-3.4) 10^3/uL 1.42 Absolute Monocytes (0.1-0.8) 10^3/uL 0.63 Absolute Eosinophils (0.0-0.7) 10^3/uL 0.03 Absolute Basophils (0.0-0.2) 10^3/uL 0.05 VBG pH (7.31-7.41) 7.40 VBG pCO2 (41-51) mmHg 38 L VBG pO2 mmHg 43 VBG HCO3 (23-28) mmol/L 23 VBG Total CO2 (24-29) mmol/L 20 L VBG O2 Saturation % 78 VBG Base Excess (-2-3) mmol/L -2 VBG Lactate (<or=2.0) mmol/L 2.3 H* 1.2 Sodium (136-145) mmol/L 135 L Potassium (3.5-5.1) mmol/L 4.0 Chloride (98-107) mmol/L 96 L Carbon Dioxide (21.0-32.0) mmol/L 23.0 Anion Gap (3-11) mmol/L 16.0 H BUN (7-18) mg/dL 25 H Creatinine (0.70-1.30) mg/dL 1.4 H Est GFR (CKD-EPI 2020) (mL/min/1.73m2) 60.10 Glucose (74-106) mg/dL 135 H Calcium (8.5-10.1) mg/dL 10.0 Magnesium (1.8-2.4) mg/dL 2.2 Total Bilirubin (0.2-1.0) mg/dL 1.3 H AST (15-37) U/L 22 ALT (16-63) U/L 35 Alkaline Phosphatase (46-116) U/L 84 Total Protein (6.4-8.2) g/dL 8.5 H Albumin (3.4-5.0) g/dL 3.8 Lipase (<78) U/L 31 PFSH All Active Problems (Updated 09/01/25 @ 04:25 by Milton Leblanc MD) Ileus (Acute) Prostate cancer (Chronic) Sessile colonic polyp (Acute ~01/19/23) Tubulovillous adenoma (Acute ~01/19/23) Family history of thoracic aortic aneurysm (Acute) father, 2 uncles and 1 aunt Elevated LDL cholesterol level (Acute) Family history of ASCVD (arteriosclerotic cardiovascular disease) (Acute) Pilonidal cyst (Acute) excision of pilonidal cyst with Dr Carly Reese, [facility].mg HTN (hypertension) (Chronic) Medical History (Updated 09/01/25 @ 04:25 by Milton Leblanc MD) Prostate nodule Elevated PSA, less than 10 ng/ml History of tobacco use quit in 2016; 10 packyr hx History of sebaceous cyst patient seen in ED 01/08/[address] [facility], hx of recurrent cysts. Surgical History History of colonoscopy with polypectomy (~01/19/23) History of appendectomy Family History Mother No problems noted. Father , age 72 AAA (abdominal aortic aneurysm) Sister No problems noted. Son No problems noted. Daughter No problems noted. Maternal Grandfather , age 85 No problems noted. Paternal Grandfather No problems noted. Maternal Grandmother , age 93 No problems noted. Paternal Grandmother No problems noted. Paternal Uncle AAA (abdominal aortic aneurysm) Paternal Uncle AAA (abdominal aortic aneurysm) Social History (Updated 08/21/25 @ 11:17 by Noris Sandra) Smoking/Tobacco Use Status: Former Tobacco Use tobacco type: cigarettes Quit Date: 11/07/16 Pack-years: 12 Tobacco: How many years used: 15 Smoking risk assessment performed?: Yes Alcohol Intake: current Alcohol Intake frequency: 0-2 drinks per day Alcohol type: hard liquor Drug use: Never Substance use type: former substance user and marijuana Caregiver/Support person: No Household members: spouse and family Number of Children: 4 Education Level: vocational current occupation: works for [employer] Pets and animals: Yes Pets and animals: dog(s) Sexually active: Yes Do you think of yourself as: straight/heterosexual Current gender identity: male What is your relationship status?: How often do you talk on the phone with friends or family?: once per week How often do you get together with friends or relatives?: twice per week How often do you attend confucianist or mormonism services?: 1-3 times per year Do you belong to any clubs or organized social groups?: no Panel score (0-1 are the most socially isolated patients): 2 What type of physical activity do you participate in: other Details: push ups Frequency: daily Rachel/Congregation: [employer] Special rachel needs: No Seatbelt use: always Helmet use: Yes Helmet use: always Drive intox 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
[2025-09-01] MEDS: Normal Saline 1,000 ML 1000 ML IV (01:15)
[2025-09-01] MEDS: Omnipaque 350 MG/ML 100 ML BTL IJ (01:25)
[2025-09-01] MEDS: Normal Saline Flush 10 ML SYR IVP (01:25)
[2025-09-01] MEDS: Normal Saline - Diluent 50 ML VIAL IJ (01:25)
[2025-09-01 01:27] LABS: BE (Venous) -2 mmol/L (-2-3); HCO3 (Venous) 23 mmol/L (23-28); O2 Sat (Venous) 78 %; TCO2 (Venous) 20 mmol/L (24-29); pCO2 (Venous) 38 mmHg (41-51); pO2 (Venous) 43 mmHg
[2025-09-01 01:29] LABS: Abs Immature Grans 0.06 10^3/uL (0.0-0.06); HCT 51.4 % (40.0-50.0); HGB 16.8 g/dL (13.5-17.5); Immature Grans % 0.4 %; MCH 28.3 pg (27.0-33.0); MCHC 32.7 % (32.0-36.0); MCV 87 fL (80-95); MPV 9.9 fL (8.0-11.0); Platelet Count 389 10^3/uL (130-400); RBC 5.93 10^6/uL (4.36-5.78); RDW 14.2 % (11.8-14.1); RDW-SD 45.4 fL; WBC 13.68 10^3/uL (4.4-10.8)
[2025-09-01] MEDS: MORPHine 4 MG/ML SYR IVP (01:32)
[2025-09-01] MEDS: Ondansetron 4 MG/2 ML VIAL IVP ×2 (01:33→22:13)
[2025-09-01 01:44] LABS: Lipase 31 U/L (<78)
[2025-09-01 01:49] LABS: ALT 35 U/L (16-63); AST 22 U/L (15-37); Albumin 3.8 g/dL (3.4-5.0); Alkaline Phosphatase 84 U/L (46-116); Anion Gap 16.0 mmol/L (3-11); BUN 25 mg/dL (7-18); Bilirubin, Total 1.3 mg/dL (0.2-1.0); CO2 23.0 mmol/L (21.0-32.0); Calcium 10.0 mg/dL (8.5-10.1); Chloride 96 mmol/L (98-107); Glucose 135 mg/dL (74-106); Magnesium 2.2 mg/dL (1.8-2.4); Potassium 4.0 mmol/L (3.5-5.1); Sodium 135 mmol/L (136-145); Total Protein 8.5 g/dL (6.4-8.2)
--- NOTE | 2025-09-01 02:02 | DI.CT_ITS ---
Exam(s) CT ABDOMEN PELVIS W EXAM: CT ABDOMEN PELVIS W CLINICAL HISTORY: POD #3 prostatectomy, firm tender abd and vomiting TECHNIQUE: Imaging Protocol: Axial computed tomography images with coronal and sagittal reformatted images were created and reviewed. CONTRAST MATERIAL: Intravenous: Omnipaque 350 Contrast volume:75 mL Oral: No COMPARISON: No exams were available for comparison FINDINGS: ABDOMEN: Lung Bases: There is a calcified granuloma in the right lower lobe. There is a 2 mm noncalcified pulmonary nodule in the left lower lobe. Liver: Normal density. There is a 5 mm hypodensity in the right lobe of the liver posteriorly. It is too small for further characterization. Portal, Superior Mesenteric, and Splenic Veins: Unremarkable. Gallbladder and Biliary Tract: Gallstones are present. There is no biliary ductal dilatation. Pancreas: Normal density, no abnormal calcifications or inflammatory process. Spleen: Normal. Adrenals: No masses seen. Kidneys: There is renal cortical scarring in the right kidney. There are bilateral simple renal cysts. No follow-up is recommended. No radiodense stones or obstructive uropathy. No masses seen. Abdominal Aorta: Abdominal portion non-dilated. Atherosclerotic calcification is present. Bowel: There are dilated loops of small and large bowel. The bowel is largely fluid-filled. The dilatation extends all the way into the sigmoid colon. No mass is seen at a transition point. There is no bowel wall thickening. There are surgical clips seen in the cecum suggesting prior appendectomy. The cecum has a diameter up to 7.8 cm. There is no pneumatosis. Peritoneal Cavity: There is a small amount of fluid in the right lower quadrant. There is a small amount of extraluminal air seen in the region of the surgery. Lymph Nodes: Within normal limits. Bones: Within normal limits for the patient's age. Soft Tissues: There is mild abdominal wall edema particularly on the right. There are bilateral fat containing inguinal hernias. PELVIS: Bladder: There is a Melgoza catheter seen within the decompressed urinary bladder. The urinary bladder is difficult to evaluate. Reproductive Organs: Status post prostatectomy. Inflammatory changes are seen in the pelvis consistent with prostatectomy. There is no focal fluid collection seen to suggest an abscess. Lymph Nodes: Within normal limits. Bones: Within normal limits for the patient's age. IMPRESSION: 1. Status post prostatectomy. There is a trace amount of free fluid and free air in the abdomen which is likely post surgical. 2. Dilated loops of small and large bowel with air-fluid levels. No definite mass is seen. This likely reflects an ileus. Obstruction is considered less likely, but cannot be entirely excluded. 3. Cholelithiasis. 4. 2 mm noncalcified left lower lobe pulmonary nodule. Solid nodules smaller than 6 mm do not require routine follow-up in all patients with high clinical risk; however, some nodules smaller than 6 mm with suspicious morphology, upper lobe location, or both may warrant follow-up at 12 months (grade 2A; weak recommendation, high-quality evidence). (Fred et al., 2017) Single solid noncalcified nodules. ???Solid nodules smaller than 6 mm (those 5 mm or smaller) do not require routine follow-up in patients at low risk (grade 1C; strong recommendation, low- or [id number] evidence). (Fred et al., 2017) 5. The preliminary [facility] report was reviewed. RADIATION DOSE DELIVERED: 468.98mGy.cm Total DLP DATA REPOSITORY: All CT scans at this facility are submitted to the National Radiology Data Registry (NRDR) Dose Index Registry (DIR) with the [employer] (ACR). RADIATION OPTIMIZATION: All CT scans at this facility use at least one of these dose optimization techniques: automated exposure control; mA and/or kV adjustment per patient size (includes targeted exams where dose is matched to clinical indication); or iterative reconstruction.
--- NOTE | 2025-09-01 02:26 | DI.[facility]_ITS ---
PROCEDURE INFORMATION: Exam: CT Abdomen And Pelvis With Contrast Exam date and time: 09/01/2025 1:50 AM Age: 55 years old Clinical indication: Other: Pod #3 prostatectomy, firm tender abd and vomiting TECHNIQUE: Imaging protocol: Computed tomography of the abdomen and pelvis with contrast. Contrast material: OMNIPAQUE 350; Contrast volume: 75 ml; Contrast route: INTRAVENOUS (IV); COMPARISON: CR XR CHEST 2V PA LATERAL 02/08/2022 1:11 PM FINDINGS: Lungs: Calcified pulmonary granuloma at the right lung base. Platelike atelectasis at the lung bases. Diaphragm: Small hiatal hernia. Liver: Normal appearing liver. Gallbladder and biliary ducts: Gallbladder partially decompressed. Calcified gallstones. No biliary dilatation. Pancreas: Normal appearing pancreas. Spleen: Normal appearing spleen. Adrenal glands: Normal appearing adrenal glands. Kidneys and ureters: 1.7 cm right renal cyst. Additional smaller hypoattenuating renal lesions, not well characterized but statistically most likely additional small cysts. Renal scarring with cortical thinning on the right. Uniform left renal parenchymal enhancement. No hydronephrosis. No obstructing ureteral stones. Stomach and bowel: Stomach largely decompressed. Small-bowel diffusely distended with fluid and gas. Prominent distention of the cecum and ascending colon with fluid and gas. Prominent distention of the transverse and descending colon with fluid and gas. Moderate distention of the proximal sigmoid colon. Almost complete collapse of the mid-distal sigmoid colon and rectum. No evidence of diverticulitis or colitis. Appendix: Appendix not identified. Surgical material at the cecal apex suggesting a prior appendectomy. Correlation with surgical history recommended. Intraperitoneal space: Small amount of fluid in the pelvis. No free air seen in the upper abdomen. Extraluminal gas demonstrated in the space of Retzius, along the pelvic sidewalls, and within a left inguinal hernia, presumably from the recent surgery. No frankly organized drainable abscess. Vasculature: Normal caliber abdominal aorta. Lymph nodes: No pathologically enlarged mesenteric, retroperitoneal, or pelvic sidewall lymph nodes. Urinary bladder: Urinary bladder collapsed around a Melgoza catheter. Reproductive: Prostate gland not identified. Recent prostatectomy by report. Bones/joints: No acute fracture seen among the bones of the abdomen or pelvis. Soft tissues: Ypakr-ngvpucpt-bcvie fat containing bilateral inguinal region hernias. IMPRESSION: Small-bowel diffusely distended with fluid and gas. Prominent distention of the cecum and ascending colon with fluid and gas. Prominent distention of the transverse and descending colon with fluid and gas. Moderate distention of the proximal sigmoid colon. Postop ileus is suspected in the setting of recent surgery. Of note, the patient would likely receive at least some symptomatic benefit after decompression of gas from below. Dictated and Authenticated by: Reji Gill MD. Orderin Ilene Amin MD
--- NOTE | 2025-09-01 04:13 | DI.RAD_ITS ---
Exam(s) XR PORTABLE CHEST AP EXAM: XR PORTABLE CHEST AP CLINICAL HISTORY: ng tube check TECHNIQUE: 2D digital imaging was performed of the chest. One image was obtained. An AP view was obtained. COMPARISON: CR XR CHEST 2V PA LATERAL from 02/08/2022 FINDINGS: There is poor inspiration. MEDIASTINUM: Normal. HEART: Normal. PULMONARY VASCULATURE: Normal. LUNGS: Clear. PLEURAL SPACE: No pleural effusion or pneumothorax. BONE:Within normal limits for the patient's age. OTHER FINDINGS:There has been interval placement of a nasogastric tube. The tip of the tube is seen within the stomach. Dilated loops of small and large bowel are seen in the abdomen suggestive of an ileus. IMPRESSION: 1. No acute pulmonary findings. 2. The tip of the nasogastric tube is seen beneath the hemidiaphragms within the stomach. 3. The preliminary [facility] report was reviewed. DATA REPOSITORY: RADIATION DOSE DELIVERED:
--- NOTE | 2025-09-01 04:18 | DI.[facility]_ITS ---
PROCEDURE INFORMATION: Exam: XR Chest Exam date and time: 09/01/2025 4:07 AM Age: 55 years old Clinical indication: Other: Ng tube check TECHNIQUE: Imaging protocol: Radiologic exam of the chest. Views: 1 view. COMPARISON: CR XR CHEST 2V PA LATERAL 02/08/2022 1:11 PM FINDINGS: Limitations: Imaging was obtained at low lung volumes. Tubes, catheters and devices: There is a nasogastric/orogastric catheter in-situ with its tip in the expected location of the gastric fundus. Lungs: No pulmonary consolidation is seen. Pleural spaces: No pleural effusion or pneumothorax is demonstrated. Heart/Mediastinum: Cardiac monitoring leads overlie the exam. The heart appears normal in size. Bones/joints: The visualized bony structures appear grossly intact. Gastrointestinal tract: There is prominent gas-filled distention of small bowel and colonic loops throughout the upper abdomen. IMPRESSION: Nasogastric/orogastric catheter in-situ with its tip in the expected location of the gastric fundus. Dictated and Authenticated by: Reji Gill MD. Orderin Ilene Amin MD
--- NOTE | 2025-09-01 04:19 | HPE_ITS ---
Date of service: 09/01/25 Time of Service: 04:20 Assessment and Plan Assessment and plan (1) Ileus: Status: Acute Assessment and plan: continue with bowel rest and NG to suction. Patient was given a prokinetic agent in the ED. Will try to control pain with nonopioid medications. Consider general surgery consult in the AM. Continue with IV fluids and NPO. (2) HTN (hypertension): Status: Chronic Assessment and plan: Restart home meds when okay tolerating p.o. will control hypertension with PRNs if necessary IV (3) Prostate cancer: Status: Chronic Assessment and plan: Recent prostatectomy. Will need his scheduled outpatient follow-up. DVTP with lovenox History of Present Illness History of Present Illness Chief Complaint: abdominal pain Narrative: This is a 55-year-old gentleman who is in fairly good health with the exception of recent history of prostate cancer status post prostatectomy and hypertension who had a prostate surgery done 3 days ago at [facility]. His initial postoperative course was benign but over the last 48 hours started developing worsening abdominal distention nausea vomiting and came into the ED today for further evaluation and treatment. While he was in the ED he was given Toradol as well as Reglan. Patient also had an NG placed. In regards to his laboratory data his electrolytes are fairly benign with mild hyponatremia at 135. BUN and creatinine is 25/1.4. He does have a mild leukocytosis with a white count of 13.7 as well as elevated hemoglobin hematocrit most likely due to hemoconcentration. He also has a very mild elevation in his total bili at 1.3. In regards to his diagnostic studies chest x-ray shows NG tube in the correct location. Will have the impression of his CT abdomen: IMPRESSION: Small-bowel diffusely distended with fluid and gas. Prominent distention of the cecum and ascending colon with fluid and gas. Prominent distention of the transverse and descending colon with fluid and gas. Moderate distention of the proximal sigmoid colon. Postop ileus is suspected in the setting of recent surgery. Of note, the patient would likely receive at least some symptomatic benefit after decompression of gas from below. EKG shows mild tachycardia as well as possible LVH. No indication of acute coronary syndrome. Patient is a full code. [facility] All Active Problems (Updated 09/01/25 @ 04:25 by Milton Leblanc MD) Ileus (Acute) Prostate cancer (Chronic) Sessile colonic polyp (Acute ~01/19/23) Tubulovillous adenoma (Acute ~01/19/23) Family history of thoracic aortic aneurysm (Acute) father, 2 uncles and 1 aunt Elevated LDL cholesterol level (Acute) Family history of ASCVD (arteriosclerotic cardiovascular disease) (Acute) Pilonidal cyst (Acute) excision of pilonidal cyst with Dr Carly Reese, [facility].mg HTN (hypertension) (Chronic) Medical History (Updated 09/01/25 @ 04:25 by Milton Leblanc MD) Prostate nodule Elevated PSA, less than 10 ng/ml History of tobacco use quit in 2016; 10 packyr hx History of sebaceous cyst patient seen in ED 01/08/19 for burst cyst at [facility], hx of recurrent cysts. Surgical History History of colonoscopy with polypectomy (~01/19/23) History of appendectomy Family History Mother No problems noted. Father , age 72 AAA (abdominal aortic aneurysm) Sister No problems noted. Son No problems noted. Daughter No problems noted. Maternal Grandfather , age 85 No problems noted. Paternal Grandfather No problems noted. Maternal Grandmother , age 93 No problems noted. Paternal Grandmother No problems noted. Paternal Uncle AAA (abdominal aortic aneurysm) Paternal Uncle AAA (abdominal aortic aneurysm) Social History (Updated 08/21/25 @ 11:17 by Noris Sandra) Smoking/Tobacco Use Status: Former Tobacco Use tobacco type: cigarettes Quit Date: 11/07/16 Pack-years: 12 Tobacco: How many years used: 15 Smoking risk assessment performed?: Yes Alcohol Intake: current Alcohol Intake frequency: 0-2 drinks per day Alcohol type: hard liquor Drug use: Never Substance use type: former substance user and marijuana Caregiver/Support person: No Household members: spouse and family Number of Children: 4 Education Level: vocational current occupation: works for [employer] Pets and animals: Yes Pets and animals: dog(s) Sexually active: Yes Do you think of yourself as: straight/heterosexual Current gender identity: male What is your relationship status?: How often do you talk on the phone with friends or family?: once per week How often do you get together with friends or relatives?: twice per week How often do you attend pentecostalism or methodist services?: 1-3 times per year Do you belong to any clubs or organized social groups?: no Panel score (0-1 are the most socially isolated patients): 2 What type of physical activity do you participate in: other Details: push ups Frequency: daily Rachel/Jehovah'S Witness: Jainism Special rachel needs: No Seatbelt use: always Helmet use: Yes Helmet use: always Drive intox 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 Do you feel safe at home: Yes Do you feel safe in your relationship?: Yes Meds Allergies and Home Medications Allergies Allergy/AdvReac Type Severity Reaction Status Date / Time No Known Allergies Allergy Verified 08/21/25 10:22 Home Medications Medication Instructions Recorded Confirmed Type omega 0-jwv-keq-fish oil 1,000 mg 1 cap PO DAILY 12/2408/21/25 History (120 mg-180 mg) capsule (Fish Oil) vitamin B complex (B 1 tab PO DAILY 12/24/1908/07 History Complex-Vitamin B12 tablet) fexofenadine 180 mg tablet 180 mg PO DAILY PRN 2 08/21/25 History (Marianela Allergy) lisinopril 20 mg tablet 20 mg PO DAILY #30 tabs 08/0708/21/25 Rx Exam Narrative Exam Narrative: HEENT-NG tube in place Neck no lymphadenopathy no JVD Cardiovascular- tachycardia no murmur rubs or gallops Lungs-clear to auscultation Abdomen-distended bowel sounds are present in all 4 quadrant Extremity no sinus clubbing or edema Neurologic nonfocal Results Labs 09/01/25 01:15 09/01/25 01:15 Labs: Laboratory Results - last 24 hr 09/01/25 09/01/25 01:15 02:45 WBC 13.68 H RBC 5.93 H Hgb 16.8 Hct 51.4 H MCV 87 MCH 28.3 MCHC 32.7 RDW 14.2 H Plt Count 389 MPV 9.9 Immature Gran % 0.4 Neutrophils % 84.0 Lymphocytes % 10.4 Monocytes % 4.6 Eosinophils % 0.2 Basophils % 0.4 Nucleated RBC % 0.0 Absolute Neutrophils 11.49 H Absolute Lymphocytes 1.42 Absolute Monocytes 0.63 Absolute Eosinophils 0.03 Absolute Basophils 0.05 VBG pH 7.40 VBG pCO2 38 L VBG pO2 43 VBG HCO3 23 VBG Total CO2 20 L VBG O2 Saturation 78 VBG Base Excess -2 VBG Lactate 2.3 H* 1.2 Sodium 135 L Potassium 4.0 Chloride 96 L Carbon Dioxide 23.0 Anion Gap 16.0 H BUN 25 H Creatinine 1.4 H Est GFR (CKD-EPI 2020) 60.10 Glucose 135 H Calcium 10.0 Magnesium 2.2 Total Bilirubin 1.3 H AST 22 ALT 35 Alkaline Phosphatase 84 Total Protein 8.5 H Albumin 3.8 Lipase 31 Last Vital Signs Temp 37 C 09/01/25 00:43 Pulse 106 H 09/01/25 02:50 Resp 17 09/01/25 02:50 BP 133/94 H 09/01/25 02:45 Pulse Ox 96 09/01/25 02:50 PAWSS Have you Been Recently Intoxicated or Drunk Within the Last 30 days?: No Have you Ever Experienced Previous Episodes of Alcohol Withdrawal?: No Have you ever Experienced Withdrawal Seizures?: No Have you ever Experienced Delirium Tremens(DT)s?: No Have you ever undergone Alcohol Rehabilitation Treatment (i.e, inpt ot outpatient treatment programs)?: No Have you ever Experienced Blackouts?: No Have you ever Combined Alcohol with other Downers within the last 90 days?: No Have you ever Combined Alcohol with any other Substance of Abuse during the last 90 days?: No Positive Blood Alcohol level on Presentation? [PCS.BAL]: No Evidence of Increased Autonomic Activity (i.e. HR>120, tremor, sweating, agitation, nausea)?: No Result: 0 Time Spent Time spent with Patient: 40-54 minutes Time was spent: preparing to see the patient(eg.review tests), obtaining and/or reviewing separately otained hiistory, ordering medications,tests, procedures, referring, communicating with other health med care manager, indepentently interpreting results, counseling the patient and care coordination
[2025-09-01] MEDS: Metoclopramide 10 MG/2 ML VIAL IVP (04:42)
[2025-09-01] MEDS: Ketorolac 15 MG/ML VIAL IVP ×2 (04:43→22:13)
[2025-09-01] MEDS: ACETAMINOPHEN 1,000 MG/100 ML BAG 400 MG IVPB (04:45)
[2025-09-01] MEDS: Enoxaparin 40 MG/0.4 ML SYR SC (04:46)
[2025-09-01 04:57] LABS: Glucose Negative (Negative)
[2025-09-01 05:03] LABS: RBC >50 HPF (0-2); WBC Negative HPF (0-5)
[2025-09-01 05:04] LABS: C & S Indicated? No
--- NOTE | 2025-09-01 05:06 | W.PC.ACHO ---
Registration Status: REG ER Primary Language: Preferred Language: ED Information & Data Chief Complaint Epigastric Pain/Over45 09/01/25 01:13 Chief Complaint Epigastric Pain/Over45 09/01/25 01:06 Triage Note Pt presents ambulatory with 09/01/25 00:43 partner in attendance. Had prostate removed on at [facility] Medical / Surgical History (Last Updated 04/08/25 @ 12:00 by Adolfo Vitale MD) Prostate nodule Elevated PSA, less than 10 ng/ml History of tobacco use History of sebaceous cyst (Last Reviewed 07/04/24 @ 13:28 by GEORGE Archibald) History of colonoscopy with polypectomy (~01/19/23) History of appendectomy Most Recent Vital Signs Temperature 37 C 09/01/25 00:43 Temperature Source Oral 09/01/25 00:43 Pulse 106 H 09/01/25 02:50 Pulse 105 H 09/01/25 02:50 Respiratory Rate 17 09/01/25 02:50 Blood Pressure 133/94 H 09/01/25 02:45 Blood Pressure Mean 105 09/01/25 02:45 Blood Pressure Position Sitting 09/01/25 00:43 Pulse Oximetry 96 09/01/25 02:50 Oxygen Delivery Method Room Air 09/01/25 00:43 Oxygen Flow Rate 0 09/01/25 00:43 Pain Level 6 09/01/25 01:32 Allergies No Known Allergies Allergy (Verified 08/21/25 10:22) Active Medications Generic Name Dose Route Start Last Admin Trade Name Freq PRN Reason Stop Dose Admin Enoxaparin Sodium 40 mg 09/01/25 05:00 09/01/25 04:46 Enoxaparin 40 Mg/0.4 Ml Syr SC 40 mg Q24H EDUAR Administration Iohexol 100 ml 09/01/25 01:30 09/01/25 01:25 Omnipaque 350 Mg/Ml 100 Ml Btl IJ 10/01/25 23:59 75 ml DIRECTED EDUAR Administration Sodium Chloride 50 ml 09/01/25 01:30 09/01/25 01:25 Normal Saline - Diluent 50 Ml Vial IJ 50 ml DIRECTED EDUAR Administration Sodium Chloride 0 ml 09/01/25 01:24 09/01/25 01:25 Normal Saline Flush 10 Ml Syr IVP 10 ml PRN PRN Administration IV IV Catheter Type [Right Peripheral IV Antecubital] IV Catheter Gauge [Right 20 Antecubital] Diet Orders Category Date Time Status Nothing Per Oral [DIET] Nutrition 09/01/25 04:17 Active Diagnostics 09/01/25 09/01/25 09/01/25 Range/Units 05:35 02:45 02:13 WBC Pending (4.4-10.8) 10^3/uL RBC Pending (4.36-5.78) 10^6/uL Hgb Pending (13.5-17.5) g/dL Hct Pending (40.0-50.0) % MCV Pending (80-95) fL MCH Pending (27.0-33.0) pg MCHC Pending (32.0-36.0) % RDW Pending (11.8-14.1) % Plt Count Pending (130-400) 10^3/uL MPV Pending (8.0-11.0) fL Immature Gran % Pending % Neutrophils % Pending % Lymphocytes % Pending % Monocytes % Pending % Eosinophils % Pending % Basophils % Pending % Nucleated RBC % (0.0-0.3) % Absolute Neutrophils Pending (1.2-6.7) 10^3/uL Absolute Lymphocytes Pending (1.2-3.4) 10^3/uL Absolute Monocytes Pending (0.1-0.8) 10^3/uL Absolute Eosinophils Pending (0.0-0.7) 10^3/uL Absolute Basophils Pending (0.0-0.2) 10^3/uL VBG pH (7.31-7.41) VBG pCO2 (41-51) mmHg VBG pO2 mmHg VBG HCO3 (23-28) mmol/L VBG Total CO2 (24-29) mmol/L VBG O2 Saturation % VBG Base Excess (-2-3) mmol/L VBG Lactate 1.2 (<or=2.0) mmol/L Sodium Pending (136-145) mmol/L Potassium Pending (3.5-5.1) mmol/L Chloride Pending (98-107) mmol/L Carbon Dioxide Pending (21.0-32.0) mmol/L Anion Gap Pending (3-11) mmol/L BUN Pending (7-18) mg/dL Creatinine Pending (0.70-1.30) mg/dL Est GFR (CKD-EPI 2020) Pending (mL/min/1.73m2) Glucose Pending (74-106) mg/dL Calcium Pending (8.5-10.1) mg/dL Magnesium (1.8-2.4) mg/dL Total Bilirubin Pending (0.2-1.0) mg/dL AST Pending (15-37) U/L ALT Pending (16-63) U/L Alkaline Phosphatase Pending (46-116) U/L Total Protein Pending (6.4-8.2) g/dL Albumin Pending (3.4-5.0) g/dL Lipase (<78) U/L Urine Color Pending Urine Clarity Pending Urine pH Pending Ur Specific Blount Pending Urine Protein Pending Urine Ketones Pending Urine Blood Pending Urine Nitrite Pending Urine Bilirubin Pending Urine Urobilinogen Pending Ur Leukocyte Esterase Pending Urine Glucose Pending 09/01/25 Range/Units 01:15 WBC 13.68 H (4.4-10.8) 10^3/uL RBC 5.93 H (4.36-5.78) 10^6/uL Hgb 16.8 (13.5-17.5) g/dL Hct 51.4 H (40.0-50.0) % MCV 87 (80-95) fL MCH 28.3 (27.0-33.0) pg MCHC 32.7 (32.0-36.0) % RDW 14.2 H (11.8-14.1) % Plt Count 389 (130-400) 10^3/uL MPV 9.9 (8.0-11.0) fL Immature Gran % 0.4 % Neutrophils % 84.0 % Lymphocytes % 10.4 % Monocytes % 4.6 % Eosinophils % 0.2 % Basophils % 0.4 % Nucleated RBC % 0.0 (0.0-0.3) % Absolute Neutrophils 11.49 H (1.2-6.7) 10^3/uL Absolute Lymphocytes 1.42 (1.2-3.4) 10^3/uL Absolute Monocytes 0.63 (0.1-0.8) 10^3/uL Absolute Eosinophils 0.03 (0.0-0.7) 10^3/uL Absolute Basophils 0.05 (0.0-0.2) 10^3/uL VBG pH 7.40 (7.31-7.41) VBG pCO2 38 L (41-51) mmHg VBG pO2 43 mmHg VBG HCO3 23 (23-28) mmol/L VBG Total CO2 20 L (24-29) mmol/L VBG O2 Saturation 78 % VBG Base Excess -2 (-2-3) mmol/L VBG Lactate 2.3 H* (<or=2.0) mmol/L Sodium 135 L (136-145) mmol/L Potassium 4.0 (3.5-5.1) mmol/L Chloride 96 L (98-107) mmol/L Carbon Dioxide 23.0 (21.0-32.0) mmol/L Anion Gap 16.0 H (3-11) mmol/L BUN 25 H (7-18) mg/dL Creatinine 1.4 H (0.70-1.30) mg/dL Est GFR (CKD-EPI 2020) 60.10 (mL/min/1.73m2) Glucose 135 H (74-106) mg/dL Calcium 10.0 (8.5-10.1) mg/dL Magnesium 2.2 (1.8-2.4) mg/dL Total Bilirubin 1.3 H (0.2-1.0) mg/dL AST 22 (15-37) U/L ALT 35 (16-63) U/L Alkaline Phosphatase 84 (46-116) U/L Total Protein 8.5 H (6.4-8.2) g/dL Albumin 3.8 (3.4-5.0) g/dL Lipase 31 (<78) U/L Urine Color Urine Clarity Urine pH Ur Specific Blount Urine Protein Urine Ketones Urine Blood Urine Nitrite Urine Bilirubin Urine Urobilinogen Ur Leukocyte Esterase Urine Glucose 09/01/25 02:45 Blood Culture - Pending Blood 09/01/25 01:05 Blood Culture - Pending Blood Intake and Output - 24 Hour Total 09/01/25 00:39 thru 09/01/25 00:43 Weight 83.915 kg Falls Risk Assessment History of Falls No History 09/01/25 02:41 Ambulatory Aids Independent 09/01/25 02:41 Tubes/Lines W/no contributing factors 09/01/25 02:41 Gait Evaluation No gait disturbance 09/01/25 02:41 Cognition No cognitive impairment 09/01/25 02:41 Fall Total Score 09/01/25 02:41 Level of Risk Standard/Low Risk 09/01/25 02:41 Problems (Last Updated 04/08/25 @ 12:00 by Adolfo Vitale MD) Ileus (Acute) Prostate cancer (Chronic) HTN (hypertension) (Chronic) v v v v v v v v v Sending and/or Receiving Nurses: Please use comment section below to note any information pertinent to the patient hand-off not included above. Information / Comments: received report, All questions answered. Report received from: FELICIA Pearce @ [phone]
[2025-09-01] MEDS: DEXTROSE 5%-0.45% SALINE 1,000 ML 125 ML IV ×3 (05:36→22:55)
[2025-09-01 06:36] LABS: Abs Immature Grans 0.04 10^3/uL (0.0-0.06); HCT 43.6 % (40.0-50.0); HGB 13.9 g/dL (13.5-17.5); Immature Grans % 0.4 %; MCH 27.9 pg (27.0-33.0); MCHC 31.9 % (32.0-36.0); MCV 87 fL (80-95); MPV 10.1 fL (8.0-11.0); Platelet Count 286 10^3/uL (130-400); RBC 4.99 10^6/uL (4.36-5.78); RDW 14.4 % (11.8-14.1); RDW-SD 46.5 fL; WBC 9.88 10^3/uL (4.4-10.8)
[2025-09-01 07:01] LABS: ALT 28 U/L (16-63); AST 18 U/L (15-37); Albumin 3.0 g/dL (3.4-5.0); Alkaline Phosphatase 65 U/L (46-116); Anion Gap 12.4 mmol/L (3-11); BUN 23 mg/dL (7-18); Bilirubin, Total 0.8 mg/dL (0.2-1.0); CO2 23.6 mmol/L (21.0-32.0); Calcium 8.6 mg/dL (8.5-10.1); Chloride 101 mmol/L (98-107); Glucose 125 mg/dL (74-106); Potassium 3.8 mmol/L (3.5-5.1); Sodium 137 mmol/L (136-145); Total Protein 6.7 g/dL (6.4-8.2)
--- NOTE | 2025-09-01 08:06 | PDOC.CMIN ---
Date of service: 09/01/25 Time of Service: 08:06 Care Management Initial Assmt Initial Assessment Reason for Hospitalization: ileus - post-operative complication Functional Status/Living Situation Patient Presentation: Junior presented to the ED early this morning with c/o abdominal pain and vomiting. He is post-op day #3 from a prostatectomy at [facility]. He stated that he had been vomiting since his discharge on day 1, but only a few times. Last evening he was unable to keep anything down and was having severe abdominal pain. In the ED he was noted to have a distended abdomen that was tender to palpation with some guarding. Abdominal CT indicated post op ileus. NGT was placed and he was made NPO. Junior was lying in bed, semi-reclined, when CM met with him today. He was polite, but did not wish to talk. He stated that he was still feeling uncomfortable, and he looked it. His NGT was hooked to suction and was noted to be actively draining. His stomach appeared distended. Junior stated that he works at [employer] and will not need a work note. Town of Residence: [place] Resides with: Spouse (, Ilana and 2 of their 4 children) Natural Supports: family Employment Status: Employed (works at [employer]) Instrumental Activities of Daily Living (ADLs): Independent Medications Medication Management: No Issues/Barriers identified Advance Directives Advance Directives: Do you have an Advance Directive: N 02/19/19, 14:23 AD On File at [facility]: N 02/19/19, 14:23 Date Asked 05/29/24 05/29/24, 15:18 AD Date Reviewed COLST On File at [facility] COLST Date Scanned Code Status Resuscitation Status Full Code Insurance Coverage/Financial Issues Insurance: Medicaid of [place] Care Team Visit Care Team Role Provider Type Ene Nguyen NP NURSE PRACTITIONER Ursula Chamorro MD Primary Care Provider [facility] STAFF PHYSICIAN Ananya Renteria Other Providers OTHER Eloisa Odom MD Emergency Provider [facility] STAFF PHYSICIAN Milton Leblanc MD Admit Provider [facility] STAFF PHYSICIAN Attending Provider Discharge Potential Discharge Needs: PCP F/U Appt and Surgical F/U Appt Anticipated Barriers to Discharge: None Identified Patient/Family Education Needs: Review discharge instructions, discuss Ask Me Three Transportation: Private vehicle Plan: Junior will be able to discharge home with no new services once he is medically stable and able to tolerate PO intake. He will f/u with his PCP, his urologist, and possibly with surgery, and continue per his plan of care. Junior will transport home in a private vehicle with family. CM will continue to follow and update the plan as needed. Social Determinants of Health Screening Will the Patient Participate in the Screening?: Declined to provide PFSH All Active Problems (Updated 09/01/25 @ 04:25 by Milton Leblanc MD) Ileus (Acute) Prostate cancer (Chronic) Sessile colonic polyp (Acute ~01/19/23) Tubulovillous adenoma (Acute ~01/19/23) Family history of thoracic aortic aneurysm (Acute) father, 2 uncles and 1 aunt Elevated LDL cholesterol level (Acute) Family history of ASCVD (arteriosclerotic cardiovascular disease) (Acute) Pilonidal cyst (Acute) excision of pilonidal cyst with Dr Carly Reese, [facility].mg HTN (hypertension) (Chronic) Medical History (Updated 09/01/25 @ 04:25 by Milton Leblanc MD) Prostate nodule Elevated PSA, less than 10 ng/ml History of tobacco use quit in 2016; 10 packyr hx History of sebaceous cyst patient seen in ED 01/08/19 for burst cyst at [facility], hx of recurrent cysts. Surgical History History of colonoscopy with polypectomy (~01/19/23) History of appendectomy Family History Mother No problems noted. Father , age 72 AAA (abdominal aortic aneurysm) Sister No problems noted. Son No problems noted. Daughter No problems noted. Maternal Grandfather , age 85 No problems noted. Paternal Grandfather No problems noted. Maternal Grandmother , age 93 No problems noted. Paternal Grandmother No problems noted. Paternal Uncle AAA (abdominal aortic aneurysm) Paternal Uncle AAA (abdominal aortic aneurysm) Social History (Updated 08/21/25 @ 11:17 by Noris Sandra) Smoking/Tobacco Use Status: Former Tobacco Use tobacco type: cigarettes Quit Date: 11/07/16 Pack-years: 12 Tobacco: How many years used: 15 Smoking risk assessment performed?: Yes Alcohol Intake: current Alcohol Intake frequency: 0-2 drinks per day Alcohol type: hard liquor Drug use: Never Substance use type: former substance user and marijuana Caregiver/Support person: No Household members: spouse and family Housing: house Number of Children: 4 Education Level: vocational current occupation: works for [email or web address] Pets and animals: Yes Pets and animals: dog(s) Sexually active: Yes Do you think of yourself as: straight/heterosexual Current gender identity: male What is your relationship status?: How often do you talk on the phone with friends or family?: once per week How often do you get together with friends or relatives?: twice per week How often do you attend yazdanism or holiness services?: 1-3 times per year Do you belong to any clubs or organized social groups?: no Panel score (0-1 are the most socially isolated patients): 2 What type of physical activity do you participate in: other Details: push ups Frequency: daily Rachel/Mandaeism: Mandaeism Special rachel needs: No Seatbelt use: always Helmet use: Yes Helmet use: always Drive intox or ride w/intox 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
[2025-09-01] MEDS: Benzocaine 20% 60 ML CAN TP ×2 (08:15→13:40)
--- NOTE | 2025-09-01 12:53 | IN_ITS ---
PT Notes Visit Reasons: post operative ileus Physical Therapy Day Surgery Initial Evaluation Date: 09/01/2025 Referring Doctor: Dr. Leblanc PT Orders: PT CONSULT: PT evaluation and treat Precautions: [] NG tube, Melgoza, standard Patient Profile/Admitting Diagnosis: Patient is 55-year-old male presented to [facility] ED on 06/01 with vomiting and abdominal pain since discharge from [facility] on 1024 status post prostatectomy due to prostate CA. In ED patient noted to have elevated WBC greater than [address] of abdomen and pelvis revealed dilated fluid-filled loops of transverse, descending and proximal sigmoid colon. EKG results showed tachycardia with possible LVH. Blood cultures were obtained results are pending. Patient was diagnosed with postop ileus and initially treated with IV fluids, Zofran and morphine which was changed to Reglan Tylenol and Toradol. NG tube was placed and patient was admitted to the MedSurg unit for further medical management. PMHX: Ileus (Acute) Prostate cancer (Chronic) Sessile colonic polyp (Acute ~01/19/23) Tubulovillous adenoma (Acute ~01/19/23) Family history of thoracic aortic aneurysm (Acute) father, 2 uncles and 1 auntElevated LDL cholesterol level (Acute) Family history of ASCVD (arteriosclerotic cardiovascular disease) (Acute) Pilonidal cyst (Acute) excision of pilonidal cyst with Dr Carly Reese, [facility].mg HTN (hypertension) (Chronic) Medical History (Updated 09/01/25 @ 04:25 by Milton Leblanc MD) Prostate nodule Elevated PSA, less than 10 ng/ml History of tobacco use quit in 2016; 10 packyr hxHistory of sebaceous cyst patient seen in ED 01/08/19 for burst cyst at [facility], hx of recurrent cysts. Surgical History History of colonoscopy with polypectomy (~01/19/23) History of appendectomy Social History/Home Situation: Resides in home with 2 steps to enter. Patient independent ambulation, ADLs, home management, yard management, employed. Equipment Owned/DME: None Subjective: Patient reports his throat is sore Objective: General Observation: Young male supine in bed NG tube in place Melgoza catheter to bedside drainage Mental Status: Alert and oriented x 4, cooperative, able to follow instructions agreeable to participate Pain: Abdominal and throat due to NG tube ROM: [] BUE: Within normal limits BLE: Within normal limits Strength: [] BUE: 5/5 BLE: 5/5 Sensation: Intact Bed Mobility/Transfers: [] Supine to sit independent Sit to stand independent Stand to sit independent Bed to chair independent Gait: Ambulated 300 feet with oversight supervision and management of IV pole in Melgoza catheter tubing. Patient did demonstrate reduced step length and foot clearance Stairs: 3 4 steps and 2 6 steps with rails supervision with rail reciprocal pattern Balance: [] Static Sitting: Normal Dynamic Sitting: Normal Static Standing: Normal Dynamic Standing: Normal Special Tests: [] Mobility Limitations Standardized Measure [] [facility] 6 clicks Basic Mobility Inpatient Short Form: [] Raw Score: 24 CMS Score: 0% deficit Informed Consent/Education: Patient instructed in purpose of PT consult. Assessment: Patient is a 55-year-old male presented with postoperative ileus. Patient demonstrates no functional deficits and is independent with mobility. Patient demonstrated no loss of balance during functional mobility including stairs. He required assistance for IV pole management and Melgoza catheter management. No further skilled PT services indicated at this time as an inpatient nor upon discharge when medically appropriate Patient is assessed as a low complexity based on the following: History: 55-year-old male with impairment level findings, functional limitations, and past medical history as indicated above Examination: Demonstrable impairment in strength, balance, and mobility level with underlying impairments and functional limitations as documented above Presentation: Stable/evolving Decision Making: Low Goals: N/A. PT evaluation only Plan of Care/Treatment Plan: N/A. PT evaluation only DISCHARGE RECOMMENDATIONS: Home with no services. No further skilled PT indicated as an inpatient as patient is independent TREATMENT CODE/TIME: [id number] Thank you for the opportunity to participate in the care of this patient. Michelle Villarreal, PT [facility]
--- NOTE | 2025-09-01 14:11 | W.PM.PROGNOT ---
Date of Service Date of service: 09/01/25 Time of Service: 14:11 Assessment and Plan Assessment and plan (1) Ileus: Status: Acute Assessment and plan: now passing flatuscontinue with bowel rest and NG to low intermittent suction. pain with nonopioid medications. (2) HTN (hypertension): Status: Chronic Assessment and plan: Restart home meds when okay tolerating p.o. will control hypertension with PRNs if necessary IV (3) Prostate cancer: Status: Chronic Assessment and plan: Recent prostatectomy. Will need his scheduled outpatient follow-up. DVTP with lovenox discussed with DR Wells Subjective Subjective Patient reports: no new complaints Interval history since last seen: remains NPO with NGT intact, 200 cc drainage. passing flatus, no BM, feeling improved, walking in the halls Exam Const General: cooperative, comfortable and no acute distress Nutritional Appearance: average body habitus Orientation: alert, awake and oriented x3 HENMT Head: normal to inspection, normocephalic and atraumatic Mouth: oral mucosae normal Eyes General: appearance normal, both eyes and all related structures Neck Neck: normal visual inspection and full ROM Chest Chest: normal inspection of the chest Resp Effort & Inspection: normal respiratory effort Auscultation: clear to auscultation bilaterally Cardio Rate: regular rate Rhythm: regular rhythm Heart Sounds: no murmurs GI Inspection: distended Palpation: tender Auscultation: hyperactive bowel sounds Skin General skin exam: no rashes or lesions noted Neuro General: patient alert, patient awake, patient oriented x3 and moves all extremities Extrem General: normal to inspection, full ROM and no pedal edema Psych Appearance: grossly normal Mental Status: mental status grossly normal Affect: blunted Attitude: cooperative Thought Content: normal Objective Last Vital Signs Temp 36.9 C 09/01/25 13:22 Pulse 100 H 09/01/25 07:19 Resp 16 09/01/25 07:19 BP 128/90 09/01/25 07:19 Pulse Ox 97 09/01/25 07:19 Laboratory Results - last 24 hr 09/01/25 09/01/25 09/01/25 01:15 02:13 02:45 WBC 13.68 H RBC 5.93 H Hgb 16.8 Hct 51.4 H MCV 87 MCH 28.3 MCHC 32.7 RDW 14.2 H Plt Count 389 MPV 9.9 Immature Gran % 0.4 Neutrophils % 84.0 Lymphocytes % 10.4 Monocytes % 4.6 Eosinophils % 0.2 Basophils % 0.4 Nucleated RBC % 0.0 Absolute Neutrophils 11.49 H Absolute Lymphocytes 1.42 Absolute Monocytes 0.63 Absolute Eosinophils 0.03 Absolute Basophils 0.05 VBG pH 7.40 VBG pCO2 38 L VBG pO2 43 VBG HCO3 23 VBG Total CO2 20 L VBG O2 Saturation 78 VBG Base Excess -2 VBG Lactate 2.3 H* 1.2 Sodium 135 L Potassium 4.0 Chloride 96 L Carbon Dioxide 23.0 Anion Gap 16.0 H BUN 25 H Creatinine 1.4 H Est GFR (CKD-EPI 2020) 60.10 Glucose 135 H Calcium 10.0 Magnesium 2.2 Total Bilirubin 1.3 H AST 22 ALT 35 Alkaline Phosphatase 84 Total Protein 8.5 H Albumin 3.8 Lipase 31 Urine Color Yellow Urine Clarity Clear Urine pH 5.5 Ur Specific Anderson 1.010 Urine Protein 30 H Urine Ketones 40 H Urine Blood Large H Urine Nitrite Negative Urine Bilirubin Small H Urine Urobilinogen 0.2 Ur Leukocyte Esterase Negative Urine RBC >50 H Urine WBC Negative Ur Epithelial Cells Rare Urine Crystals Negative Urine Bacteria Rare Urine Casts Negative Urine Mucus Negative Ur Culture Indicated? No Urine Glucose Negative 09/01/25 06:00 WBC 9.88 RBC 4.99 Hgb 13.9 D Hct 43.6 MCV 87 MCH 27.9 MCHC 31.9 L RDW 14.4 H Plt Count 286 MPV 10.1 Immature Gran % 0.4 Neutrophils % 79.5 Lymphocytes % 13.6 Monocytes % 5.9 Eosinophils % 0.2 Basophils % 0.4 Nucleated RBC % 0.0 Absolute Neutrophils 7.86 H Absolute Lymphocytes 1.34 Absolute Monocytes 0.58 Absolute Eosinophils 0.02 Absolute Basophils 0.04 VBG pH VBG pCO2 VBG pO2 VBG HCO3 VBG Total CO2 VBG O2 Saturation VBG Base Excess VBG Lactate Sodium 137 Potassium 3.8 Chloride 101 Carbon Dioxide 23.6 Anion Gap 12.4 H BUN 23 H Creatinine 1.0 Est GFR (CKD-EPI 2020) 90.00 Glucose 125 H Calcium 8.6 Magnesium Total Bilirubin 0.8 AST 18 ALT 28 Alkaline Phosphatase 65 Total Protein 6.7 Albumin 3.0 L Lipase Urine Color Urine Clarity Urine pH Ur Specific Anderson Urine Protein Urine Ketones Urine Blood Urine Nitrite Urine Bilirubin Urine Urobilinogen Ur Leukocyte Esterase Urine RBC Urine WBC Ur Epithelial Cells Urine Crystals Urine Bacteria Urine Casts Urine Mucus Ur Culture Indicated? Urine Glucose PAWSS Have you Been Recently Intoxicated or Drunk Within the Last 30 days?: No Have you Ever Experienced Previous Episodes of Alcohol Withdrawal?: No Have you ever Experienced Withdrawal Seizures?: No Have you ever Experienced Delirium Tremens(DT)s?: No Have you ever undergone Alcohol Rehabilitation Treatment (i.e, inpt ot outpatient treatment programs)?: No Have you ever Experienced Blackouts?: No Have you ever Combined Alcohol with other Downers within the last 90 days?: No Have you ever Combined Alcohol with any other Substance of Abuse during the last 90 days?: No Positive Blood Alcohol level on Presentation? [PCS.BAL]: No Evidence of Increased Autonomic Activity (i.e. HR>120, tremor, sweating, agitation, nausea)?: No Result: 0 Time Spent with Patient Time Spent with Patient: 35-49 minutes Time was spent: preparing to see the patient(eg.review tests), obtaining and/or reviewing separately otained hiistory, ordering medications,tests, procedures, referring, communicating with other health senior resident care director, indepentently interpreting results and counseling the patient
--- NOTE | 2025-09-01 14:39 | PHA.REVIEW2 ---
Pharmacy Admission Review Admission Clinical Review Admission Pharmacy Review: Ileus (Acute) No Known Allergies Allergy (Verified 08/21/25 10:22) Resuscitation Status Full Code Height 5 ft 8 in Weight 83.915 kg Pharmacy Admission Review Renal Dosing Renal Dosing: BUN 23 mg/dL (7-18) H 09/01/25 06:00 Creatinine 1.0 mg/dL (0.70-1.30) 09/01/25 06:00 Medications needing adjustments: Reviewed (None of the meds currently need renal dose adjustment. Patient's Crcl is ~90ml/min) Anticoagulation Anticoagulation: Hgb 13.9 g/dL (13.5-17.5) D 09/01/25 06:00 Hct 43.6 % (40.0-50.0) 09/01/25 06:00 Plt Count 286 10^3/uL (130-400) 09/01/25 06:00 Creatinine 1.0 mg/dL (0.70-1.30) 09/01/25 06:00 DVT Prophylaxis: Reviewed Medications: Enoxaparin Opiate Usage Evaluate Pain Scale/Pains Meds: Reviewed (Pain level is now 4, patient received morphine for pain control) Relevant Labs Relevant Labs: Sodium 137 mmol/L (136-145) 09/01/25 06:00 Potassium 3.8 mmol/L (3.5-5.1) 09/01/25 06:00 Chloride 101 mmol/L (98-107) 09/01/25 06:00 Magnesium 2.2 mg/dL (1.8-2.4) 09/01/25 01:15 Electrolytes, C-Reactive P, ESR: Reviewed (Electrolytes are within normal limits ) DM Control DM Control: Reviewed (No mention of DM in patient's H&P) Cardiac Review Cardiac Review: Blood Pressure 128/90 Blood Pressure 132/88 BP, HR, EF%: Reviewed (Heart rate reported 09/01 was 100 needs monitoring) List meds needing interventions: Patient is currently normotensive though not taking his home med lisinopril QTc Review QTc: Reviewed List meds needing interventions: No meds need intervention, patient's QTc was 402 on 09/01 Home Meds Home Med List reviewed: Reviewed (Lisinopril home med not ordered as patient is NPO and would restart home meds when tolerating po. Provider plans to control hypertension with PRNs if necessary IV)
[2025-09-02 07:21] VITALS: BP 128/93; PULSE 100; RESP 16; TEMP 36.5; O2SAT 97
--- NOTE | 2025-09-02 08:22 | PDOC.CMPRO ---
Date of service: 09/02/25 Time of Service: 08:23 Care Management Progress Note Progress Note Text Progress Note Text: Junior was alert and sitting up in a chair with a lightly touched clear liquid tray in front of him. He engaged minimally in conversation, which-based on his posture appears to be related to a sore throat. His NGT is currently clamped and his diet is being advanced to clear liquids. The patient denies any concerns at this time. CM will follow. Discharge Potential Discharge Needs: PCP F/U Appt and Surgical F/U Appt Anticipated Barriers to Discharge: None Identified Patient/Family Education Needs: Review discharge instructions, discuss Ask Me Three Transportation: Private vehicle Plan: Anticipate, Junior will discharge home with no new services once he is medically stable and able to tolerate PO intake. He will f/u with his PCP, his urologist, and possibly with surgery, and continue per his plan of care. Junior will transport home in a private vehicle with family. CM will continue to follow and update the plan as needed. Social Determinants of Health Screening Will the Patient Participate in the Screening?: Declined to provide
[2025-09-02] MEDS: Pantoprazole 40 MG VIAL 80 MG IVP (12:07)
[2025-09-02] MEDS: Normal Saline Flush 10 ML SYR IVP ×2 (12:07→21:56)
[2025-09-02 13:28] LABS: HCT 45.5 % (40.0-50.0); HGB 14.5 g/dL (13.5-17.5)
[2025-09-02] MEDS: DEXTROSE 5%-0.45% SALINE 1,000 ML 125 ML IV (14:21)
--- NOTE | 2025-09-02 14:37 | SCONE_ITS ---
Date of service: 09/02/25 Time of Service: 14:37 Assessment and Plan Assessment and plan (1) Ileus: Status: Acute Assessment and plan: With regards to the concern for gastrointestinal bleeding, I suspect this is really just a side effect of the nasogastric tube rather than true stress ulcer or gastritis. Regardless, I think a trial of proton pump inhibitor therapy is certainly reasonable here. His repeat hemoglobin this afternoon is reassuring. I think the therapeutic benefit of an EGD is quite low at this point. Additionally, the ileus seems to be improving. Since the time the consultation was placed this morning, he is already had 2 bowel movements and is passing flatus. The nasogastric tube has been clamped, and he has no symptoms of any nausea. In that regard, I think removal of the nasogastric tube is probably very reasonable at this point. I would keep his diet to just simple liquids that he can take as desired. I would also trial a short course of MiraLAX over the next few days to ensure that everything is completely flushed out. History of Present Illness History of Present Illness Chief Complaint: Nausea vomiting with coffee-ground NG tube effluent Narrative: Junior is 55 years old. He was diagnosed with prostate cancer. He underwent a robotic prostatectomy on August 30 at [facility]. The operative report sounds fairly straightforward. He was discharged home the next day. At home, he began experiencing abdominal pain and developed bloating and distention symptoms. He called his urologist who suggested trying MiraLAX, Senokot, and Gas-X. The next day he developed more abdominal discomfort with multiple episodes of vomiting, so he came to the emergency department. In the ER, he was afebrile, but a little bit tachycardic. He had a leukocytosis around 14,000, and a mild elevation in his serum creatinine consistent with mild dehydration. He underwent a CAT scan of the abdomen and pelvis that demonstrated some routine postsurgical changes, but also dilation of the small intestine and colon, concerning for an ileus. [facility] declined to transfer. A nasogastric tube was inserted, and he was admitted to the hospital for fluid resuscitation. Today, there were some concerns about the change in the effluent from the nasogastric tube, looking a little more coffee-ground or bloody. His hemoglobin dropped from 16.8-13.9, although there was probably some hemoconcentration on the initial CBC from the dehydration. Review of Systems Constitutional Constitutional: Denies fever(s), Reports poor appetite and Denies weakness Eyes Eyes: Reports system reviewed and no additional complaints, except as documented ENT Ears, Nose, Mouth, and Throat: Reports system reviewed and no additional complaints, except as documented Cardiovascular Cardiovascular: Denies chest pain and Denies dyspnea Respiratory Respiratory: Denies chest congestion, Denies cough and Denies dyspnea Gastrointestinal Gastrointestinal: Reports abdominal pain, Reports nausea and Reports vomiting Genitourinary Comments: There is a Melgoza catheter in place from his surgery Neurologic Neurologic: Denies weakness Hematologic/Lymphatic Hematologic/Lymphatic: Denies easy bleeding and Denies easy bruising PFSH All Active Problems (Updated 09/01/25 @ 04:25 by Milton Leblanc MD) Ileus (Acute) Prostate cancer (Chronic) Sessile colonic polyp (Acute ~01/19/23) Tubulovillous adenoma (Acute ~01/19/23) Family history of thoracic aortic aneurysm (Acute) father, 2 uncles and 1 aunt Elevated LDL cholesterol level (Acute) Family history of ASCVD (arteriosclerotic cardiovascular disease) (Acute) Pilonidal cyst (Acute) excision of pilonidal cyst with Dr Carly Reese, [facility].mg HTN (hypertension) (Chronic) Medical History (Updated 09/01/25 @ 04:25 by Milton Leblanc MD) Prostate nodule Elevated PSA, less than 10 ng/ml History of tobacco use quit in 2016; 10 packyr hx History of sebaceous cyst patient seen in ED 01/08/19 for burst [facility] at [facility], hx of recurrent cysts. Surgical History History of colonoscopy with polypectomy (~01/19/23) History of appendectomy Family History Mother No problems noted. Father , age 72 AAA (abdominal aortic aneurysm) Sister No problems noted. Son No problems noted. Daughter No problems noted. Maternal Grandfather , age 85 No problems noted. Paternal Grandfather No problems noted. Maternal Grandmother , age 93 No problems noted. Paternal Grandmother No problems noted. Paternal Uncle AAA (abdominal aortic aneurysm) Paternal Uncle AAA (abdominal aortic aneurysm) Social History (Updated 08/21/25 @ 11:17 by Noris Sandra) Smoking/Tobacco Use Status: Former Tobacco Use tobacco type: cigarettes Quit Date: 11/07/16 Pack-years: 12 Tobacco: How many years used: 15 Smoking risk assessment performed?: Yes Alcohol Intake: current Alcohol Intake frequency: 0-2 drinks per day Alcohol type: hard liquor Drug use: Never Substance use type: former substance user and marijuana Caregiver/Support person: No Household members: spouse and family Housing: house Number of Children: 4 Education Level: vocational current occupation: works for [employer] Pets and animals: Yes Pets and animals: dog(s) Sexually active: Yes Do you think of yourself as: straight/heterosexual Current gender identity: male What is your relationship status?: How often do you talk on the phone with friends or family?: once per week How often do you get together with friends or relatives?: twice per week How often do you attend voodoo or yazidism services?: 1-3 times per year Do you belong to any clubs or organized social groups?: no Panel score (0-1 are the most socially isolated patients): 2 What type of physical activity do you participate in: other Details: push ups Frequency: daily Rachel/Rastafarian: Buddhism Special rachel needs: No Seatbelt use: always Helmet use: Yes Helmet use: always Drive intox or ride w/intox cat driver: No Do you feel safe at home: Yes Do you feel safe in your relationship?: Yes Exam Const General: cooperative, comfortable and no acute distress Orientation: alert, awake and oriented x3 HENMT Head: normal to inspection Eyes General: appearance normal, both eyes and all related structures Neck Neck: normal visual inspection, full ROM and no lymphadenopathy GI Inspection: incision (Clean, with no signs of infection) Palpation: firm, no guarding and nontender Percussion: normal to percussion Auscultation: hypoactive bowel sounds Results Last Vital Signs Temp 97.7 F 09/02/25 07:21 Pulse 100 H 09/02/25 07:21 Resp 16 09/02/25 07:21 BP 128/93 H 09/02/25 07:21 Pulse Ox 97 09/02/25 07:21 Labs 09/02/25 13:15 09/01/25 06:00 Labs: Laboratory Results - last 24 hr 10/27/25 13:15 Hgb 14.5 Hct 45.[address] scan report/results: report reviewed and image reviewed CT scan - pelvis: report reviewed and image reviewed
--- NOTE | 2025-09-02 15:29 | PGE_ITS ---
Date of Service Date of service: 09/02/25 Time of Service: 15:29 Assessment and Plan Assessment and plan (1) Ileus: Status: Acute Assessment and plan: now passing flatus and loose stool remove NGT advance to clears initiate miralax surgery consultation (2) HTN (hypertension): Status: Chronic Assessment and plan: blood pressure has been controlled. will resume home meds at discharge (3) Upper GI bleeding: Status: Acute Assessment and plan: coffee ground drainage from NGT started PPI H&H stable surgery consulted (4) Prostate cancer: Status: Chronic Assessment and plan: Recent prostatectomy. Will need his scheduled outpatient follow-up. lovenox placed on hold with coffee ground drainage from NGT tube dc to gravity draining clear urine anticipate a discharge to home tomorrow if tolerates po and remains stable. discussed with DR Wells Subjective Subjective Patient reports: no new complaints, feels better, tolerating liquids well, freida rrhea and afebrile; denies nausea or vomiting Interval history since last seen: Continues to have Dc catheter draining medium yellow urine No chest pain shortness of breath or dizziness Exam Const General: cooperative, comfortable and no acute distress Nutritional Appearance: average body habitus Orientation: alert, awake and oriented x3 HENMT Head: normal to inspection, normocephalic and atraumatic Mouth: oral mucosae normal Eyes General: appearance normal, both eyes and all related structures Neck Neck: normal visual inspection and full ROM Chest Chest: normal inspection of the chest Resp Effort & Inspection: normal respiratory effort Auscultation: clear to auscultation bilaterally Cardio Rate: regular rate Rhythm: regular rhythm Heart Sounds: no murmurs GI Inspection: distended Palpation: tender Auscultation: hyperactive bowel sounds Skin General skin exam: no rashes or lesions noted Neuro General: patient alert, patient awake, patient oriented x3 and moves all extremities Extrem General: normal to inspection, full ROM and no pedal edema Psych Appearance: grossly normal Mental Status: mental status grossly normal Affect: blunted Attitude: cooperative Thought Content: normal Objective Last Vital Signs Temp 36.5 C 09/02/25 07:21 Pulse 100 H 09/02/25 07:21 Resp 16 09/02/25 07:21 BP 128/93 H 09/02/25 07:21 Pulse Ox 97 09/02/25 07:21 Laboratory Results - last 24 hr 09/02/25 13:15 Hgb 14.5 Hct 45.5 PAWSS Have you Been Recently Intoxicated or Drunk Within the Last 30 days?: No Have you Ever Experienced Previous Episodes of Alcohol Withdrawal?: No Have you ever Experienced Withdrawal Seizures?: No Have you ever Experienced Delirium Tremens(DT)s?: No Have you ever undergone Alcohol Rehabilitation Treatment (i.e, inpt ot outpatient treatment programs)?: No Have you ever Experienced Blackouts?: No Have you ever Combined Alcohol with other Downers within the last 90 days?: No Have you ever Combined Alcohol with any other Substance of Abuse during the last 90 days?: No Positive Blood Alcohol level on Presentation? [PCS.BAL]: No Evidence of Increased Autonomic Activity (i.e. HR>120, tremor, sweating, agitation, nausea)?: No Result: 0 Time Spent with Patient Time Spent with Patient: 35-49 minutes Time was spent: preparing to see the patient(eg.review tests), obtaining and/or reviewing separately otained hiistory, ordering medications,tests, procedures, indepentently interpreting results and counseling the patient
[2025-09-02 19:41] VITALS: BP 135/93; PULSE 105; RESP 18; TEMP 37.2; O2SAT 98
[2025-09-02] MEDS: Pantoprazole 40 MG VIAL IVP (21:56)
[2025-09-03 07:25] VITALS: BP 127/97; PULSE 100; RESP 16; TEMP 36.8; O2SAT 96
[2025-09-03] MEDS: Pantoprazole 40 MG VIAL IVP (08:34)
[2025-09-03] MEDS: Normal Saline Flush 10 ML SYR IVP (08:34)
[2025-09-03] MEDS: Polyethylene Glycol 3350 17 GM PACKET PO (08:35)
--- NOTE | 2025-09-03 08:54 | PDOC.CMDIS ---
Date of service: 09/03/25 Time of Service: 08:54 LACE Index Scoring Tool Questions: Length of Stay (in days): 2 Was the patient admitted via the E.D.?: Yes Comorbidities: Metastatic Solid Tumor (Prostate cancer) E.D. Visits: 1 Answers: Total Score: 11 Risk of Readmission: High Risk Care Management Discharge Plan Reason for Hospitalization: Post op illeus Discharge Plan: Junior is discharged home via private vehicle with family. He will follow up with community providers and continue per his discharge plan of care. No new services are ordered prior to discharge. Patient/Family Education Needs: Review discharge instructions and plan for outpatient follow up. Discuss ask me three.
--- NOTE | 2025-09-03 13:04 | DSE_ITS ---
Date of service: 09/03/25 Time of Service: 13:04 DS: Diagnosis Discharge Diagnosis (1) Ileus: Status: Acute (2) HTN (hypertension): Status: Chronic (3) Upper GI bleeding: Status: Acute (4) Prostate cancer: Status: Chronic Discharge Plan Disposition Patient Disposition: Home Condition: Improving Discharge Details Reason For Visit: Post Operative Ileus Admit Date/Time: 09/01/25 04:16 Admit Provider: Milton Leblanc Attending Provider: Milton Leblanc Primary Care Provider: Ursula Chamorro Hospital Course Hospital Course: This is a 55-year-old gentleman with past medical history of hypertension and a recent history of prostate cancer status post prostatectomy at [facility] 3 days prior to presentation came to the ED for evaluation of worsening abdominal distention nausea vomiting on 09/01/25. Work-up with abdominal CT pointed to post-operative ileus and an NGT was placed, Ketorolac and reglan were given and the patient was admitted to the medical surgical floor for further evaluation and management. Surgical consultation recommendations for proton pump inhibitor implemented in the setting of most likely trauma related to NGT, in addition to miralax, no recommendation for EGD. The patient clinically improved, NGT discontinued with ongoing enteral intake without nausea, vomiting. The bowels are patent evidenced by multiple bowel movements. The patient is hemodynamically stable, afebrile w/o actionable findings in blood work and will be discharged home with follow-up with PCP within 7 days of discharge. Discussed with Dr Wells Recommendations for Follow Up Recommended tests to be ordered by follow up provider: Chronic dc, possible LVH as per EKG w/o ACS Home Meds and New Rx's Prescriptions: New polyethylene glycol 3350 17 gram Powder In Packet 17 g PO DAILY Qty: 30 0RF pantoprazole [Protonix] 40 mg tablet,delayed release (DR/EC) 40 mg PO DAILY Qty: 14 0RF metoclopramide HCl [Reglan] 10 mg tablet 10 mg PO QAC PRNQty: 10 0RF Rx Instructions: administer 30 minutes before meals Continued lisinopril 20 mg tablet 20 mg PO DAILY Qty: 30 12RF Discharge Instructions Referrals: Ursula Chamorro MD [Primary Care Provider, Medicine] Referral Note: Follow- up within 7 days of discharged Activity:: Activity as Tolerated Equipment/Supplies:: No Equipment Needed Diet:: Heart healthy Discharge Orders Discharge Orders: Discharge Order (Routine); Ordered 09/03/25 Ordered By: Chrissy Carrington DS: Summary Time Spent with Patient providing and/or coordinating discharge services: Greater than 30 minutes Status at Discharge Functional status at discharge: independent ambulation Overall status at discharge: patient is progressing back to baseline Mental Status: mental status grossly normal Speech and Movement: speech and movement normal Mood: congruent mood Affect: normal affect Exam Narrative Exam Narrative: Alert and oriented X4 , no acute distress, no JVD, non-icteric non-injected sclera, unlabored breathing, clear breath sounds, heart is regular,S1, S2 , no murmur, PPPX4,Abdomen is large, non-distended semi-firm, non -tympanic and non- tender, no CVA tenderness, ambulates independently, indwelling urinary catheter patent Psych Mental Status: mental status grossly normal Speech and Movement: speech and movement normal Mood: congruent mood Affect: normal affect DS: Data Vitals/I&O Vitals and I&O: Vital Signs Temperature 36.8 C 09/03/25 07:25 Temperature Source Temporal Artery Scan 09/03/25 07:25 Pulse 100 H 09/03/25 07:25 Pulse Rhythm Regular 09/01/25 06:11 Pulse 105 H 09/01/25 02:50 Respiratory Rate 16 09/03/25 07:25 Respiratory Effort Normal, Non-Labored 09/01/25 06:11 Respiratory Depth Normal 09/01/25 06:11 Respiratory Pattern Normal 09/01/25 06:11 Blood Pressure 127/97 H 09/03/25 07:25 Blood Pressure Mean 107 09/03/25 07:25 Blood Pressure Position Sitting 09/01/25 00:43 Pulse Oximetry 96 09/03/25 07:25 Oxygen Delivery Method Room Air 09/03/25 07:25 Oxygen Flow Rate 0 09/03/25 07:25 Pain Level 4 09/02/25 07:21 Intake & Output 09/02/25 09/03/25 09/03/25 23:59 11:59 23:59 Intake Total 2009 Output Total 550 / 1850 300 / 300 Balance 1460 / 170 -300 / -300 Weight 84.1 kg Intake: IV 2009 Output: Gastric Drainage 200 / 750 Right Nare 200 / 750 Urine 350 / 1100 300 / 300 Other: Urine Color Light Alexia Light Alexia Urine Appearance Clear Urine Odor Normal Comment pt self reported: empties himself pt stated he had independently been emptying dc into toilet Data Completed and Pending Pending Labs at Discharge: 09/01/25 09/01/25 09/01/25 01:15 02:13 02:45 WBC 13.68 H RBC 5.93 H Hgb 16.8 Hct 51.4 H MCV 87 MCH 28.3 MCHC 32.7 RDW 14.2 H Plt Count 389 MPV 9.9 Immature Gran % 0.4 Neutrophils % 84.0 Lymphocytes % 10.4 Monocytes % 4.6 Eosinophils % 0.2 Basophils % 0.4 Nucleated RBC % 0.0 Absolute Neutrophils 11.49 H Absolute Lymphocytes 1.42 Absolute Monocytes 0.63 Absolute Eosinophils 0.03 Absolute Basophils 0.05 VBG pH 7.40 VBG pCO2 38 L VBG pO2 43 VBG HCO3 23 VBG Total CO2 20 L VBG O2 Saturation 78 VBG Base Excess -2 VBG Lactate 2.3 H* 1.2 Sodium 135 L Potassium 4.0 Chloride 96 L Carbon Dioxide 23.0 Anion Gap 16.0 H BUN 25 H Creatinine 1.4 H Est GFR (CKD-EPI 2020) 60.10 Glucose 135 H Calcium 10.0 Magnesium 2.2 Total Bilirubin 1.3 H AST 22 ALT 35 Alkaline Phosphatase 84 Total Protein 8.5 H Albumin 3.8 Lipase 31 Urine Color Yellow Urine Clarity Clear Urine pH 5.5 Ur Specific [place] 1.010 Urine Protein 30 H Urine Ketones 40 H Urine Blood Large H Urine Nitrite Negative Urine Bilirubin Small H Urine Urobilinogen 0.2 Ur Leukocyte Esterase Negative Urine RBC >50 H Urine WBC Negative Ur Epithelial Cells Rare Urine Crystals Negative Urine Bacteria Rare Urine Casts Negative Urine Mucus Negative Ur Culture Indicated? No Urine Glucose Negative 09/01/25 09/02/25 06:00 13:15 WBC 9.88 RBC 4.99 Hgb 13.9 D 14.5 Hct 43.6 45.5 MCV 87 MCH 27.9 MCHC 31.9 L RDW 14.4 H Plt Count 286 MPV 10.1 Immature Gran % 0.4 Neutrophils % 79.5 Lymphocytes % 13.6 Monocytes % 5.9 Eosinophils % 0.2 Basophils % 0.4 Nucleated RBC % 0.0 Absolute Neutrophils 7.86 H Absolute Lymphocytes 1.34 Absolute Monocytes 0.58 Absolute Eosinophils 0.02 Absolute Basophils 0.04 VBG pH VBG pCO2 VBG pO2 VBG HCO3 VBG Total CO2 VBG O2 Saturation VBG Base Excess VBG Lactate Sodium 137 Potassium 3.8 Chloride 101 Carbon Dioxide 23.6 Anion Gap 12.4 H BUN 23 H Creatinine 1.0 Est GFR (CKD-EPI 2020) 90.00 Glucose 125 H Calcium 8.6 Magnesium Total Bilirubin 0.8 AST 18 ALT 28 Alkaline Phosphatase 65 Total Protein 6.7 Albumin 3.0 L Lipase Urine Color Urine Clarity Urine pH Ur Specific [place] Urine Protein Urine Ketones Urine Blood Urine Nitrite Urine Bilirubin Urine Urobilinogen Ur Leukocyte Esterase Urine RBC Urine WBC Ur Epithelial Cells Urine Crystals Urine Bacteria Urine Casts Urine Mucus Ur Culture Indicated? Urine Glucose Preliminary micro results at discharge 09/01/25 02:45 Blood Blood Culture - Preliminary NO GROWTH 48 HOURS 09/01/25 01:05 Blood Blood Culture - Preliminary NO GROWTH 48 HOURS PFSH All Active Problems (Updated 09/02/25 @ 15:34 by Ene Nguyen NP) Upper GI bleeding (Acute) Ileus (Acute) Prostate cancer (Chronic) Sessile colonic polyp (Acute ~01/19/23) Tubulovillous adenoma (Acute ~01/19/23) Family history of thoracic aortic aneurysm (Acute) father, 2 uncles and 1 aunt Elevated LDL cholesterol level (Acute) Family history of ASCVD (arteriosclerotic cardiovascular disease) (Acute) Pilonidal cyst (Acute) excision of pilonidal cyst with Dr Carly Reese, [facility].mg HTN (hypertension) (Chronic) Medical History (Updated 09/02/25 @ 15:34 by Ene Nguyen NP) Prostate nodule Elevated PSA, less than 10 ng/ml History of tobacco use quit in 2016; 10 packyr hx History of sebaceous cyst patient seen in ED 01/08/[address] [facility], hx of recurrent cysts. Surgical History History of colonoscopy with polypectomy (~01/19/23) History of appendectomy Family History Mother No problems noted. Father , age 72 AAA (abdominal aortic aneurysm) Sister No problems noted. Son No problems noted. Daughter No problems noted. Maternal Grandfather , age 85 No problems noted. Paternal Grandfather No problems noted. Maternal Grandmother , age 93 No problems noted. Paternal Grandmother No problems noted. Paternal Uncle AAA (abdominal aortic aneurysm) Paternal Uncle AAA (abdominal aortic aneurysm) Social History (Updated 08/21/25 @ 11:17 by Noris Sandra) Smoking/Tobacco Use Status: Former Tobacco Use tobacco type: cigarettes Quit Date: 11/07/16 Pack-years: 12 Tobacco: How many years used: 15 Smoking risk assessment performed?: Yes Alcohol Intake: current Alcohol Intake frequency: 0-2 drinks per day Alcohol type: hard liquor Drug use: Never Substance use type: former substance user and marijuana Caregiver/Support person: No Household members: spouse and family Housing: house Number of Children: 4 Education Level: vocational current occupation: works for [employer] Pets and animals: Yes Pets and animals: dog(s) Sexually active: Yes Do you think of yourself as: straight/heterosexual Current gender identity: male What is your relationship status?: How often do you talk on the phone with friends or family?: once per week How often do you get together with friends or relatives?: twice per week How often do you attend sikh or advent services?: 1-3 times per year Do you belong to any clubs or organized social groups?: no Panel score (0-1 are the most socially isolated patients): 2 What type of physical activity do you participate in: other Details: push ups Frequency: daily Rachel/Quaker: Hoahaoism Special rachel needs: No Seatbelt use: always Helmet use: Yes Helmet use: always Drive intox or ride w/intox dray driver: No Do you feel safe at home: Yes Do you feel safe in your relationship?: Yes Time Spent with Patient Time Spent with Patient: >85 minutes Time was spent: preparing to see the patient(eg.review tests), obtaining and/or reviewing separately otained hiistory, ordering medications,tests, procedures, referring, communicating with other health day care attendant, indepentently interpreting results, counseling the patient, care coordination and other
== END 2025-09-03 15:38 | disposition home or self-care (01) | DRG 394 ==
LOC: ER 04:33 → MS 05:40
PROVIDERS: Nurse Practitioner Acute Care; Admitting Provider Hospitalist; Emergency Provider Student in an Organized Health Care Education/Training Program; PCP Family Medicine; Responsible Provider Nurse Practitioner Acute Care; Visit Provider Hospitalist
DX: K91.89 Other postprocedural complications and disorders of digestive system (principal); K56.7 Ileus, unspecified; K91.841 Postprocedural hemorrhage of a digestive system organ or structure following other procedure; Y83.8 Other surgical procedures as the cause of abnormal reaction of the patient, or of later complication, without mention of misadventure at the time of the procedure; C61 Malignant neoplasm of prostate; I10 Essential (primary) hypertension; D72.829 Elevated white blood cell count, unspecified; Z98.890 Other specified postprocedural states; Z90.79 Acquired absence of other genital organ(s); E86.0 Dehydration; Z86.0101 Personal history of adenomatous and serrated colon polyps; E78.00 Pure hypercholesterolemia, unspecified; Z87.891 Personal history of nicotine dependence; Y84.8 Other medical procedures as the cause of abnormal reaction of the patient, or of later complication, without mention of misadventure at the time of the procedure
CPT/HCPCS: 00123; 36415; 80053; 82805; 83690; 87040; 93005; 96361; 96372; 96374; 96375; 97116; 97161; 97530; 99285; J1650; 71045; 74177; 81003; 81015; 83605; 83735; 85014; 85018; 85025; 93010; 99222; 99232; 99239; J0131; J1885; J2270; J2405; J2470; J2765; J3490

== ENCOUNTER 2025-09-05 15:13 | Emergency (ER) | payer MEDICAID, SELFPAY ==
[2025-09-05 15:20] VITALS: BP 121/72; PULSE 91; RESP 20; TEMP 36.9; O2SAT 95
[2025-09-05 15:26] VITALS: BP 121/72; PULSE 91; RESP 20; TEMP 36.9; O2SAT 95
--- NOTE | 2025-09-05 15:55 | ED.GENADUL_ITS ---
Discharge Plan Disposition Patient Disposition: Transfer-Acute Inpatient Care Specific Acute Inpt Facility: [facility] Condition: Serious Discharge Details Clinical Impression: Draining postoperative wound Primary Care Provider: Ursula Chamorro ED Provider: Roni Perry Home Meds and New Rx's Prescriptions: No Action lisinopril 20 mg tablet 20 mg PO DAILY Qty: 30 12RF polyethylene glycol 3350 17 gram Powder In Packet 17 g PO DAILY Qty: 30 0RF pantoprazole [Protonix] 40 mg tablet,delayed release (DR/EC) 40 mg PO DAILY Qty: 14 0RF metoclopramide HCl [Reglan] 10 mg tablet 10 mg PO QAC PRNQty: 10 0RF Rx Instructions: administer 30 minutes before meals HPI General Mode of arrival: ambulatory . Date/Time Provider Initiated Documentation: 09/05/25 15:14 . Limitations to Documentation: no limitations . Information obtained by: patient . HPI Narrative: HISTORY OF PRESENT ILLNESS 55-year-old male patient with a history of prostatectomy presenting with concern for discharge from the surgical wound. The patient underwent a robotic prostatectomy at [facility] on 08/29/2025, followed by an overnight stay in the hospital. He was discharged on 08/30/2025 but returned to [facility] 08/31/2025 with abdominal discomfort and was diagnosed with an ileus. A nasogastric tube was inserted, and he was kept under observation for 3 nights. The ileus has since resolved, and he is now able to eat and drink normally. He reports feeling better today than he has since the surgery. He has a catheter in place, which is draining well without any blood. The catheter bag is emptied twice daily, each time being almost full. He has not experienced any fever. The patient first noticed drainage from the surgical wound on 09/04/2025. The drainage was initially bright orange but has since turned yellow. The volume of the drainage is significant, soaking through his shirt and recliner. The wound was changed before leaving home less than an hour ago, and his pants are already wet from the drainage. PAST SURGICAL HISTORY: Prostatectomy on 08/29/2025 Related Data Home Medications Medication Instructions Recorded Confirmed lisinopril 20 mg tablet 20 mg PO DAILY #30 tabs 08/0709/01/25 metoclopramide HCl 10 mg tablet 10 mg PO QAC PRN #10 t abs 09/03/25 (Reglan) pantoprazole 40 mg tablet,delayed 40 mg PO DAILY #14 t abs 09/03/25 release (Protonix) polyethylene glycol 3350 17 gram 17 g PO DAILY #30 ea 09/03/25 oral powder packet Previous Rx's Medication Instructions Recorded lisinopril 20 mg tablet 20 mg PO DAILY #30 tabs 08/07 03/31 metoclopramide HCl 10 mg tablet 10 mg PO QAC PRN #10 t abs 09/03/25 (Reglan) pantoprazole 40 mg tablet,delayed 40 mg PO DAILY #14 t abs 09/03/25 release (Protonix) polyethylene glycol 3350 17 gram 17 g PO DAILY #30 ea 09/03/25 oral powder packet Allergies Allergy/AdvReac Type Severity Reaction Status Date / Time No Known Allergies Allergy Verified 08/21/25 10:22 General Stated Complaint: Abd Prob OTIS: 3 Review of Systems All systems reviewed & are unremarkable except as noted in HPI and below Constitutional Constitutional: Denies fever(s) Exam Const General: cooperative and no acute distress HENMT Mouth: moist mucous membranes Eyes Conjunctivae: normal conjunctivae Sclera: normal sclerae Neck Neck: trachea midline and supple Resp Auscultation: clear to auscultation bilaterally, no rales, no rhonchi and no wheezes Cardio Rate: regular rate and not tachycardic Rhythm: regular rhythm GI Palpation: soft, not firm, no guarding, no masses, not rigid and nontender Other: Melgoza catheter draining clear yellow urine Skin Other: Surgical wounds healing without erythema Neuro General: patient alert, patient awake, patient oriented x3 and tone normal Extrem General: no edema Course Vital Signs Vital signs: Vital Signs Temperature 36.9 C 09/05/25 15:20 Pulse 91 H 09/05/25 15:20 Respiratory Rate 20 09/05/25 15:20 Blood Pressure 121/72 09/05/25 15:20 Pulse Oximetry 95 09/05/25 15:20 Temperature 36.9 C 09/05/25 15:26 Pulse 91 H 09/05/25 15:26 Respiratory Rate 20 09/05/25 15:26 Blood Pressure 121/72 09/05/25 15:26 Blood Pressure Position Sitting 09/05/25 15:26 Pulse Oximetry 95 09/05/25 15:26 Oxygen Delivery Method Room Air 09/05/25 15:26 Oxygen Flow Rate 0 09/05/25 15:26 Medical Decision Making ASSESSMENT AND PLAN Initial Assessment: 55-year-old male here 7 days status post-prostatectomy, postoperative course complicated by ileus, now with significant clear orange to yellow discharge from right lower lateral abdominal incision. Patient is afebrile. Abdominal exam benign. Hemodynamically stable. Differential Diagnosis: - Seroma: Clear serous fluid collection post-surgery. No fever or worsening pain. Manage with pads. Expected to decrease and stop. - Less likely urinary source ED Course: 1600 -- I have contacted [facility] [place] to request consultation with urology. 1635 -- I spoke with [facility] urologist on-call discussed ED presentation course. He recommends collecting fluid from surgical wound and checking creatinine as well as serum creatinine to determine if urinary source. I spoke with the lab and trina Abraham is a send out study. 1700 --again spoke with Dr. Patel, recommends checking serum creatinine and if normal, patient can be discharged home with return precautions and plan for follow-up on send out lab early next week. This document was written with the assistance of MANISHA Martel. The patient consented to its use. PFSH All Active Problems (Updated 09/05/25 @ 16:40 by Roni Perry MD) Draining postoperative wound (Acute) Prostate cancer (Chronic) Sessile colonic polyp (Acute ~01/19/23) Tubulovillous adenoma (Acute ~01/19/23) Family history of thoracic aortic aneurysm (Acute) father, 2 uncles and 1 aunt Elevated LDL cholesterol level (Acute) Family history of ASCVD (arteriosclerotic cardiovascular disease) (Acute) Pilonidal cyst (Acute) excision of pilonidal cyst with Dr Carly Reese, [facility].mg HTN (hypertension) (Chronic) Medical History Upper GI bleeding Prostate nodule Elevated PSA, less than 10 ng/ml History of tobacco use quit in 2016; 10 packyr hx History of sebaceous cyst patient seen in ED 01/08/19 for burst cyst at tailbone, hx of recurrent cysts. Surgical History History of colonoscopy with polypectomy (~01/19/23) History of appendectomy Family History Mother No problems noted. Father , age 72 AAA (abdominal aortic aneurysm) Sister No problems noted. Son No problems noted. Daughter No problems noted. Maternal Grandfather , age 85 No problems noted. Paternal Grandfather No problems noted. Maternal Grandmother , age 93 No problems noted. Paternal Grandmother No problems noted. Paternal Uncle AAA (abdominal aortic aneurysm) Paternal Uncle AAA (abdominal aortic aneurysm) Social History Smoking/Tobacco Use Status: Former Tobacco Use tobacco type: cigarettes Quit Date: 11/07/16 Pack-years: 12 Tobacco: How many years used: 15 Smoking risk assessment performed?: Yes Alcohol Intake: current Alcohol Intake frequency: 0-2 drinks per day Alcohol type: hard liquor Drug use: Never Substance use type: former substance user and marijuana Caregiver/Support person: No Household members: spouse and family Housing: house Number of Children: 4 Education Level: vocational current occupation: works for [employer] Pets and animals: Yes Pets and animals: dog(s) Sexually active: Yes Do you think of yourself as: straight/heterosexual Current gender identity: male What is your relationship status?: How often do you talk on the phone with friends or family?: once per week How often do you get together with friends or relatives?: twice per week How often do you attend jainism or pentecostalism services?: 1-3 times per year Do you belong to any clubs or organized social groups?: no Panel score (0-1 are the most socially isolated patients): 2 What type of physical activity do you participate in: other Details: push ups Frequency: daily Rachel/Orthodox: Temple Special rachel needs: No Seatbelt use: always Helmet use: Yes Helmet use: always Drive intox or ride w/intox bulk delivery driver: No Do you feel safe at home: Yes Do you feel safe in your relationship?: Yes
[2025-09-05 17:12] LABS: Abs Immature Grans 0.06 10^3/uL (0.0-0.06); HCT 39.4 % (40.0-50.0); HGB 12.9 g/dL (13.5-17.5); Immature Grans % 0.7 %; MCH 29.0 pg (27.0-33.0); MCHC 32.7 % (32.0-36.0); MCV 89 fL (80-95); MPV 9.6 fL (8.0-11.0); Platelet Count 332 10^3/uL (130-400); RBC 4.45 10^6/uL (4.36-5.78); RDW 14.0 % (11.8-14.1); RDW-SD 45.1 fL; WBC 8.04 10^3/uL (4.4-10.8)
[2025-09-05 17:30] LABS: ALT 78 U/L (16-63); AST 30 U/L (15-37); Albumin 3.0 g/dL (3.4-5.0); Alkaline Phosphatase 93 U/L (46-116); Anion Gap 8.3 mmol/L (3-11); BUN 13 mg/dL (7-18); Bilirubin, Total 0.7 mg/dL (0.2-1.0); CO2 27.7 mmol/L (21.0-32.0); Calcium 8.4 mg/dL (8.5-10.1); Chloride 101 mmol/L (98-107); Glucose 91 mg/dL (74-106); Potassium 3.3 mmol/L (3.5-5.1); Sodium 137 mmol/L (136-145); Total Protein 6.6 g/dL (6.4-8.2)
--- NOTE | 2025-09-05 17:52 | ED.PROG_ITS ---
Date of service: 09/05/25 Time of Service: 17:53 Medical Decision Making Patient signed out to me pending lab work which shows normal kidney function. Dr. Perry did talk to urology and advised that if his kidney function was normal he can follow-up with them as an outpatient as scheduled next week. Discussed results with patient and he is hemodynamically stable, he has no signs of infection surrounding the surgical site so do not feel antibiotics are indicated. Return precautions given. Discharge Plan Disposition Patient Disposition: Home Condition: Serious Discharge Details Clinical Impression: Draining postoperative wound Primary Care Provider: Ursula Chamorro ED Provider: Phill Lee Dyer Meds and New Rx's Prescriptions: Continued lisinopril 20 mg tablet 20 mg PO DAILY Qty: 30 12RF polyethylene glycol 3350 17 gram Powder In Packet 17 g PO DAILY Qty: 30 0RF pantoprazole [Protonix] 40 mg tablet,delayed release (DR/EC) 40 mg PO DAILY Qty: 14 0RF metoclopramide HCl [Reglan] 10 mg tablet 10 mg PO QAC PRNQty: 10 0RF Rx Instructions: administer 30 minutes before meals Discharge Instructions Additional Instructions: Dr. Perry discussed the case with urology at [facility] and they advised of your kidney function was normal that you can follow-up with them as scheduled next week and your lab work did not show any concerning findings at this time. Follow-up with urology as scheduled next week. If you feel more ill, have severe pain or high fevers return to the emergency department for reevaluation.
[2025-09-08 10:24] LABS: Creatinine, BF 1.0 mg/dL
--- NOTE | 2025-09-09 09:16 | NUR.NOTE ---
Access chart to determine antibiotic on discharge for peritoneal fluid culture. Result given to provider. Nursing Note:
== END 2025-09-05 18:25 | disposition home or self-care (01) ==
PROVIDERS: Student in an Organized Health Care Education/Training Program; Emergency Provider Emergency Medicine; PCP Family Medicine
DX: C61 Malignant neoplasm of prostate (principal); T81.89XA Other complications of procedures, not elsewhere classified, initial encounter
CPT/HCPCS: 99284; 99283; 00123; 80053; 82570; 85025